=== PATIENT | female | born 1960 | race Caucasian/White ===

== ENCOUNTER 2022-09-27 11:02 | Outpatient (OUT) | payer OTHER, SELFPAY ==
--- NOTE | 2022-09-27 11:12 | XR_ITS ---
The [address] [address] Patient Name: JULIANN SILVA MRN: [id number] date: 1960 Sex: F Assigned Patient Location: [facility] Current Patient Location: [facility] Accession/Order Number: [id number] Exam Date: 09/27/2022 11:42 Report Date: 09/27/2022 16:08 At the request of: NADEGE TAYLOR Procedure: XR cervical spine 5V EXAM TYPE: XR cervical spine 5V EXAM DATE AND TIME: 09/27/2022 8:42 AM PDT INDICATION: 62 years old Female with right-sided pain COMPARISON: None. TECHNIQUE: 5 views of the cervical spine. FINDINGS: BONES/DISCS: Vertebral bodies are normal in height. There is disc space narrowing at C5-C6 and C6-C7 with associated anterior osteophytosis. Facet arthropathy is noted at C6-C7. There is bilateral foraminal stenosis at C5-C6 and C6-C7. Other foramina are satisfactorily maintained.. PARASPINOUS: Negative. No paraspinous abnormality. OTHER: Negative. CONCLUSION: Multilevel cervical spondylosis. No acute fracture or traumatic malalignment. Electronically authenticated by: Baljinder HAIR Date: 09/27/2022 16:08
--- NOTE | 2022-09-27 11:12 | XR_ITS ---
The [address] [address] Patient Name: JULIANN SILVA MRN: [id number] date: 1960 Sex: F Assigned Patient Location: [facility] Current Patient Location: [facility] Accession/Order Number: [id number] Exam Date: 09/27/2022 11:42 Report Date: 09/27/2022 16:02 At the request of: NADEGE TAYLOR Procedure: XR lumbar spine 2-3V EXAM: XR lumbar spine 2-3V HISTORY: Anesthesia of skin R20.0 COMPARISON: None. TECHNIQUE: 3 view study FINDINGS: Vertebral bodies are normal in height. There is widespread disc space narrowing, most marked at L4-L5. Early anterior osteophytosis at L1-L2, L2-L3, L3-L4, and L4-L5. Facet arthropathy is noted at L4-L5 and L5-S1. XR/XR lumbar spine 2-3V IMPRESSION: Multilevel lumbar spondylosis. Electronically authenticated by: Baljinder HAIR Date: 09/27/2022 16:02
== END 2022-09-27 11:03 | disposition home or self-care (01) ==
LOC: RAD 11:06
PROVIDERS: PCP Family Medicine; Visit Provider Family Medicine
DX: R20.0 Anesthesia of skin (principal); M79.2 Neuralgia and neuritis, unspecified; M47.812 Spondylosis without myelopathy or radiculopathy, cervical region
CPT/HCPCS: 72050; 72100

== ENCOUNTER 2022-11-26 08:14 | Outpatient (OUT) | payer OTHER, SELFPAY ==
[2022-11-26 08:35] LABS: Erythrocyte Sedimentation Rate 3 mm/hr (<=30)
[2022-11-26 09:21] LABS: BUN Creatinine Ratio 18.2; Calcium 9.1 mg/dL (8.5-10.1); Carbon Dioxide 31.3 mmol/L (21.0-32.0); Chloride 103 mmol/L (98-107); Creatine Kinase 137 U/L (26-192); Estimated GFR (African America >60 (>=60); Estimated GFR (Non-African Ame >60 (>=60); Glucose 112 mg/dL (74-106); Potassium 4.3 mmol/L (3.5-5.1); Sodium 140 mmol/L (136-145); Thyroid Stimulating Hormone 3.397 uIU/mL (0.358-3.740)
== END 2022-11-26 08:15 | disposition home or self-care (01) ==
LOC: LAB 08:15
PROVIDERS: PCP Family Medicine; Visit Provider Psychiatry & Neurology Neurology
DX: R20.0 Anesthesia of skin (principal); D64.9 Anemia, unspecified; R20.2 Paresthesia of skin
CPT/HCPCS: 36415; 80048; 82550; 82607; 82728; 82746; 84443; 85652

== ENCOUNTER 2023-11-19 08:28 | Outpatient (OUT) | payer OTHER, SELFPAY ==
[2023-11-19 09:00] LABS: Basophils Percent Auto 0.8 % (0.2-2.0); Eosinophils Absolute Auto 0.2 10^3/uL (0.0-0.7); Eosinophils Percent Auto 3.1 % (0.9-7.0); Hematocrit 39.6 % (36.0-48.0); Hemoglobin 13.2 g/dL (12.0-16.0); Immature Granulocytes Abs Auto 0.01 10^3/uL (0.00-0.03); Immature Granulocytes Pct Auto 0.2 % (0.0-0.5); Lymphocytes Absolute Auto 1.9 10^3/uL (1.2-3.8); Lymphocytes Percent Auto 35.9 % (20.5-60.0); Mean Corpuscular HGB Conc 33.3 g/dL (29.9-35.2); Mean Corpuscular Hemoglobin 30.1 pg (26.7-34.0); Mean Corpuscular Volume 90.4 fL (81.0-99.0); Mean Platelet Volume 9.6 fL (9.5-13.5); Monocytes Absolute Auto 0.4 10^3/uL (0.3-0.8); Monocytes Percent Auto 7.5 % (1.7-12.0); Neutrophils Absolute Auto 2.8 10^3/uL (1.4-6.5); Neutrophils Percent Auto 52.5 % (43.0-75.0); Platelet Count 275 10^3/uL (150-450); Red Blood Count 4.38 10^6/uL (4.20-5.40); Red Cell Distribution Width 12.6 % (11.0-15.0); White Blood Count 5.2 10^3/uL (4.0-11.0)
[2023-11-19 09:31] LABS: Alanine Aminotransferase 38 U/L (14-59); Albumin Level 3.5 g/dL (3.4-5.0); Alkaline Phosphatase 80 U/L (46-116); Aspartate Amino Transferase 20 U/L (15-37); BUN Creatinine Ratio 16.7; Calcium 8.8 mg/dL (8.5-10.1); Carbon Dioxide 26.1 mmol/L (21.0-32.0); Chloride 104 mmol/L (98-107); Chol HDL Ratio 3.1; Cholesterol 245 mg/dL (<=200); Estimated GFR (African America >60 (>=60); Estimated GFR (Non-African Ame >60 (>=60); Globulin 3.4 g/dL; Glucose 115 mg/dL (74-106); HDL Cholesterol 79 mg/dL (40-60); Potassium 4.1 mmol/L (3.5-5.1); Sodium 140 mmol/L (136-145); Total Protein 6.9 g/dL (6.4-8.2); Triglycerides 104 mg/dL (<=150); VLDL CHOLESTEROL 20.8 mg/dL
== END 2023-11-19 08:29 | disposition home or self-care (01) ==
LOC: LAB 08:30
PROVIDERS: PCP Family Medicine; Visit Provider Family Medicine
DX: I10 Essential (primary) hypertension (principal)
CPT/HCPCS: 36415; 80053; 80061; 85025

== ENCOUNTER 2023-11-19 14:52 | Outpatient (OUT) | payer OTHER, SELFPAY ==
--- NOTE | 2023-11-19 15:25 | XR_ITS ---
The [address] [address] Patient Name: JULIANN SILVA MRN: [id number] date: 1960 Sex: F Assigned Patient Location: [facility] Current Patient Location: Accession/Order Number: [id number] Exam Date: 11/19/2023 15:01 Report Date: 11/20/2023 07:12 At the request of: NADEGE TAYLOR Procedure: XR DEXA axial skeleton EXAMINATION: XR DEXA axial skeleton, 11/19/2023 3:01 PM EDT HISTORY: Menopause COMPARISON: None. TECHNIQUE: Dual-energy X-ray absorptiometry (DEXA) bone density study performed for the axial skeleton. HISTORY: Menopause FINDINGS: Bone mineral density AP spine L1-L4 measures 1.328 g/sq cm. T score 1.3. Normal Lowest bone density left femoral neck measuring 0.909 g/sq cm. T score -0.9. Normal XR/XR DEXA axial skeleton IMPRESSION: Normal bone mineral density. Low fracture risk Pharmacologic treatment recommendations * No uniform recommendation applies to all patients. Management plans must be individualized. * Consider initiating pharmacologic treatment in postmenopausal women and men >= 50 years of age who have the following: Primary fracture prevention: * T-score <= - 2.5 at the femoral neck, total hip, lumbar spine, 33% radius (some uncertainty with existing data) by DXA. * Low bone mass (osteopenia: T-score between - 1.0 and - 2.5) at the femoral neck or total hip by DXA with a 10-year hip fracture risk >= 3% or a 10-year major osteoporosis-related fracture risk >= 20% (i.e., clinical vertebral, hip, forearm, or proximal humerus) based on the [place]-adapted FRAXregistered model. Secondary fracture prevention: * Fracture of the hip or vertebra regardless of BMD [4, 5]. * Fracture of proximal humerus, pelvis, or distal forearm in persons with low bone mass (osteopenia: T-score between - 1.0 and - 2.5). The decision to treat should be individualized in persons with a fracture of the proximal humerus, pelvis, or distal forearm who do not have osteopenia or low BMD [12, 13]. Luciano DONNELLY, Alycia HALL, Gabrielle KL, Katia EM, Sae KG, AJ, Ramesh ES. The clinician's guide to prevention and treatment of osteoporosis. Osteoporos Int. 2021;33(10):6920-1361. doi: 10.1007/f88388-567-61128-n. Epub 2021Jun 15. Erratum in: Osteoporos Int. 2021Sep 14;: PMID: [id number]; PMCID: [id number]. Electronically authenticated by: DEANGELO TORRES Date: 11/20/2023 07:12
--- NOTE | 2023-11-19 15:25 | MM_ITS ---
Patient Name: JULIANN SILVA MR#: [id number] : 1960 Exam Date: 11/19/2023 Ordering Doctor: DR Rosalba Koehler M.D. RADIOLOGY REPORT PROCEDURE: MM TOMOSYNTHESIS SCREENING BI COMPARISON: MG MAMM CHANEL SCRN W CAD DIG, 12/17/2014. MG MAMM SCREEN CHANEL W CAD, 08/27/2019. INDICATIONS: Screening Calculator Name NCI Breast Cancer Risk Assessment Tool 5 Year Breast Cancer Risk 1.80% Lifetime Breast Cancer Risk 6.90% Personal Breast Cancer No Personal Ovarian Cancer No Treatments None Family Cancers Mother with ovaria cancer at age 32. LOCATION: [facility] BREAST COMPOSITION: The breasts are heterogeneously dense,which may obscure small masses. FINDINGS: DIAGNOSTIC CATEGORY 2--BENIGN FINDING. NO CHANGE FROM COMPARISON. Scattered benign-appearing calcifications are present. Scattered benign-appearing lymph nodes are present. RIGHT BREAST: No significant suspicious finding. LEFT BREAST: No significant suspicious finding. RECOMMENDATIONS: ROUTINE MAMMOGRAM AND CLINICAL EVALUATION IN 12 MONTHS. PLEASE NOTE: A NORMAL MAMMOGRAM DOES NOT EXCLUDE THE POSSIBILITY OF BREAST CANCER. A CLINICALLY SUSPICIOUS PALPABLE LUMP SHOULD BE BIOPSIED. Dictated by: Jaziel Astudillo MD on 11/19/2023 at 15:42 Approved by: Jaziel Astudillo MD on 11/19/2023 at 15:47
== END 2023-11-19 14:53 | disposition home or self-care (01) ==
LOC: MAMMO 14:52
PROVIDERS: PCP Family Medicine; Visit Provider Family Medicine
DX: Z12.31 Encounter for screening mammogram for malignant neoplasm of breast (principal); I10 Essential (primary) hypertension; Z78.0 Asymptomatic menopausal state; Z80.41 Family history of malignant neoplasm of ovary
CPT/HCPCS: 36415; 77063; 77067; 77080; 80053; 80061; 85025

== ENCOUNTER 2024-05-28 09:39 | Outpatient (OUT) | payer MEDICARE, SELFPAY ==
--- NOTE | 2024-05-28 09:52 | XR_ITS ---
[place] [id number] Patient Name: JULIANN SILVA MRN: [id number] date: 1960 Sex: F Assigned Patient Location: [facility] Current Patient Location: [facility] Accession/Order Number: [id number] Exam Date: 05/28/2024 10:10 Report Date: 05/28/2024 10:11 At the request of: NADEGE TAYLOR MD Procedure: XR chest 2V Plain film chest 2 view HISTORY: Chronic cough COMPARISON: None FINDINGS: SUPPORT DEVICES: None POSTSURGICAL CHANGES: None HEART: Within normal limits PULMONARY [place]: Within normal limits MEDIASTINUM: Unremarkable LUNGS AND PLEURA: No acute lung process, pleural effusion or pneumothorax identified. BONY STRUCTURES: Degenerative change ADDITIONAL FINDINGS None XR/XR chest 2V IMPRESSION: No acute process. Impression dictated by: Quinton Hughes M.D.05/28/2024 10:11 AM Dictation Location: [place] [address] Electronically authenticated by: [id number] Y Date: 05/28/2024 10:11
--- OUTSIDE RECORDS SUMMARY | 2024-05-28 09:56 | XMS_ITS | CCD ---
Author Organization [facility] Care Team Providers Care Senior Web Developer Name Role Phone ROSALBA TAYLOR Admitting Unavailable ROSALBA TAYLOR Attending Unavailable ROSALBA TAYLOR Primary Care Unavailable DEANGELO TORRES V Consulting Unavailable ROSALBA TAYLOR Consulting Unavailable NILL, MARK Admitting Unavailable NILL, MARK Attending Unavailable ROSALBA TAYLOR Primary Care Unavailable NILL, MARK Consulting Unavailable FILOMENA RAMIRES Consulting Unavailable NILL, MARK Admitting Unavailable NILL, MARK Attending Unavailable ROSALBA TAYLOR Primary Care Unavailable NILL, MARK Consulting Unavailable Rosalba Taylor Unavailable Shaun Novak II [phone] Shaun Novak II Attending UnavailShaun Pacheco II Admitting UnavailRosalba Kim Primary Care Unavailable Rosalba Taylor Admitting Unavailable Rosalba Taylor Attending Unavailable Rosalba Taylor Primary Care Unavailable MD Rosalba Taylor Primary Care Provider MD Shaun Novak II Attending Provider [phone] MD Rosalba Taylor Attending Provider [phone] Allergies Allergy Classification Reported Allergen(s) Allergy Type Date of Onset Reaction(s) Facility (4 sources) patient allergy list reviewed by nurse or physicia Propensity to adverse reactions 8 Comment:Done [employer] Other (4 sources) Allergies Reconciled Propensity to adverse reactions Unknown [employer] Other Medications Current Medications Medication Drug Class(es) Dates Sig (Normalized) Sig (Original) acetaminophen 500 mg oral tablet (5 sources) take 1 tablet by mouth every six hours Acetaminophen 500 MG 1 tablet as needed Orally every 6 hrs prn Active amLODIPine 10 mg / hydroCHLOROthiazide 25 mg / valsartan 160 mg oral tablet (4 sources) Thiazide Diuretic, Dihydropyridine Calcium Channel Lukasz, Angiotensin 2 Receptor Lukasz take 1 tablet by mouth every twenty-four hours amLODIPine-Valsar gaming-HCTZ 10-160-25 MG 1 tablet Orally Once a day Active meloxicam 15 mg oral tablet (10 sources) Nonsteroidal Anti-inflammatory Drug Start: End: take 1 tablet by mouth once daily Meloxicam 15 mg tablet Active 15 MG PO Daily May 11, 2024 8:30am Start: 07-27-2022 take 1 tablet by gala th every twenty-four hours Meloxicam 15 MG 1 tablet Orally Once a day for 90 days Jul, Active Completed/Discontinued Medications Medication Drug Class(es) Dates Sig (Normalized) Sig (Original) amLODIPine 10 mg / valsartan 160 mg oral tablet (11 sources) Dihydropyridine Calcium Channel Lukasz, Angiotensin 2 Receptor Lukasz Start: 08-29-2023 End: 05-28-2024 take 1 tablet by mouth once daily Amlodipine-Valsart an 10-160 mg tablet Discontinued 1 TAB PO Daily March 04, 2024 9:15am May 28, 2024 9:21am amLODIPine Besyl ate-Valsartan 10-160 mg TAKE 1 TABLET DAILY Active diclofenac sodium 0.01 mg/mg topical gel (7 sources) Nonsteroidal Anti-inflammatory Drug Start: 11-05-2023 End: 11-05-2023 apply 1-2 g topically four times daily Diclofenac Sodium 1 % gel Discontinued 2 GM TOPICAL Every 4 hours November 05, 2023 12:00am November 05, 2023 2:43pm FreeTextSig: apply 1-2 grams to affected area Externally Four times a day; Note: Source Status: Taking; Refills: 2; Qty: 100 Gram; Provider: Kishore Zimmerman Start: 11-05-2023 End: 11-05-2023 apply 1-2 g topically four times daily Diclofenac Sodium Discontinued 2 GM TOPICAL Every 4 hours November 05, 2023 12:00am November 05, 2023 2:43pm FreeTextSig: apply 1-2 grams to affected area Externally Four times a day; Note: Source Status: Taking; Refills: 2; Qty: 100 Gram; Provider: Kishore Zimmerman Start: 07-27-2022 Diclofenac Sod ium 1 % apply 1-2 grams to affected area Externally Four times a day for 30 days Jul, Active ibuprofen 600 mg oral tablet (7 sources) Nonsteroidal Anti-inflammatory Drug Start: 11-05-2023 End: 11-05-2023 take 1 tablet by mouth three times daily at mealtime as needed Ibuprofen 600 mg tablet Discontinued 600 MG PO Three times daily November 05, 2023 12:00am November 05, 2023 3:09pm FreeTextSi tablet with food or milk as needed Orally Three times a day; Note: Source Status: Takingprn; Provider: Rodo Navarrete ( ) take 1 tablet by gala th three times daily at mealtime as needed Ibuprofen 600 MG 1 tablet with food or milk as needed Orally Three times a day prn Active Problems Active Problems Problem Classification Problem Date Documented Date Episodic/Chronic Anal and rectal conditions (4 sources) Anorectal disorder; Translations: [Other specified diseases of anus and rectum] Episodic Esophageal disorders (10 sources) Gastroesophageal reflux disease; Translations: [Gastro-esophageal reflux disease without esophagitis] Chronic Essential hypertension (11 sources) Essential (primary) hypertension; Translations: [Essential hypertension] Onset: 01-12-2014 11-05-2023 Chronic Heart valve disorders (1 source) Rheumatic tricuspid insufficiency; Translations: [RHEUMATIC TRICUSPID INSUFFICIENCY] Onset: 09-12-2019 Chronic Immunizations and screening for infectious disease (4 sources) Contact with and (suspected) exposure to other viral communicable diseases; Translations: [CONTCT EXPS OTH VIRL COMMUNICABL DZ] Onset: 11-13-2019 Episodic Osteoarthritis (15 sources) Osteoarthritis of right knee joint; Translations: [Unilateral primary osteoarthritis, right knee] Chronic Other connective tissue disease (1 source) Pain in right leg Episodic Other connective tissue disease (1 source) Pain in left leg Episodic Other lower respiratory disease (1 source) Dyspnea, unspecified; Translations: [DYSPNEA UNSPECIFIED] Onset: 09-12-2019 Episodic Other lower respiratory disease (4 sources) Dyspnea; Translations: [Other forms of dyspnea] Episodic Other lower respiratory disease (2 sources) Chronic cough; Translations: [Chronic cough] 05-28-2024 Episodic Other non-traumatic joint disorders (3 sources) Pain in left knee Episodic Other nutritional; endocrine; and metabolic disorders (4 sources) Obese class I; Translations: [Body mass index (BMI) 32.0-32.9, adult] Chronic Other screening for suspected conditions (not mental disorders or infectious disease) (8 sources) Encounter for screening for malignant neoplasm of colon; Translations: [Encounter for screening mammogram for malignant neoplasm of breast] Onset: 09-12-2019 11-05-2023 Episodic Other skin disorders (4 sources) Disorder of skin and/or subcutaneous tissue; Translations: [Disorder of the skin and subcutaneous tissue, unspecified] Episodic Prolapse of female genital organs (1 source) Incomplete uterovaginal prolapse; Translations: [Uterovaginal prolapse, incomplete] Onset: 05-18-2014 Chronic Residual codes; unclassified (1 source) Acquired absence of ovaries, bilateral; Translations: [ACQUIRED ABSENCE OVARIES BILATERAL] Onset: 11-24-2019 Episodic Residual codes; unclassified (1 source) Acquired absence of both cervix and uterus; Translations: [ACQUIRED ABSENCE BOTH CERVIX AND UTERUS] Onset: 11-24-2019 Episodic Residual codes; unclassified (1 source) Family history of malignant neoplasm of ovary; Translations: [FAM HX MALIGNANT NEOPLASM OVARY] Onset: 09-12-2019 Episodic Residual codes; unclassified (3 sources) H/O: risk factor; Translations: [Transfusion history] Episodic Residual codes; unclassified (2 sources) Menopause present; Translations: [Asymptomatic menopausal state] 11-05-2023 Episodic Residual codes; unclassified (1 source) Asymptomatic menopausal state; Translations: [Symptomatic menopausal or female climacteric states] 11-05-2023 Episodic Screening and history of mental health and substance abuse codes (1 source) Personal history of nicotine dependence; Translations: [PERSONAL HISTORY OF NICOTINE DEPEND] Onset: 11-24-2019 Episodic Unclassified (1 source) Pain in left knee; Translations: [Pain in left knee] Onset: 07-27-2022 Past or Other Problems Problem Classification Problem Date Documented Da te Episodic/Chronic Genitourinary symptoms and ill-defined conditions (1 source) Female genital organ symptoms; Translations: [Unspecified symptom associated with female genital organs] Onset: 05-18-2014 Episodic Other aftercare (1 source) Surgical follow-up; Translations: [Surgery follow-up examination] Onset: 07-15-2014 Episodic Other female genital disorders (1 source) Mucous polyp of cervix; Translations: [Mucous polyp of cervix] Onset: 02-21-2014 Episodic Other female genital disorders (1 source) Hypertrophy of uterus; Translations: [Hypertrophy of uterus] Onset: 02-21-2014 Episodic Results Test Name Value Interpretation Reference Range Facility XR knee BI 4Von 07-27-2022 XR knee BI 4V [facility] [employer] [address] [place] [address] XRay Report Signed Patient: Juliann Silva MR#: [id number] : 1960 Acct:[id number] Age/Sex: 61 / F ADM Date: 07/27/22 [place] [facility] [place]: Type: [facility] Attending Dr: Shaun Novak II, MD Copies to: Shaun Novak MD Ordering Provider: Shaun Novak MD Date of Service: 07/27/22 XR/XR knee BI 4V: Acute pain of left knee ([id number]) XR/XR pelvis 1-2V: Acute pain of left knee Single view of the pelvis plain film HISTORY: Bilateral knee pain greater on the left COMPARISON: None SI JOINTS Intact HIPS adequate joint spaces. No significant hip degeneration. Spurring of the greater trochanters greater on the left. FRACTURE: No fracture BONY ALIGNMENT: Adequate SOFT TISSUES: Unremarkable LOWER LUMBAR SPINE: Unremarkable INTRAPELVIC STRUCTURES: Unremarkable POSTSURGICAL CHANGES:None XR/XR pelvis 1-2V IMPRESSION:Unremarkab le hip joints. Spurring of the greater trochanters. 4 views both knee plain film COMPARISON: None HISTORY: Bilateral knee pain greater on the left ACUTE FINDINGS: None DEGENERATIVE CHANGE: Moderate patellofemoral and medial compartment joint space tiny marginal spurring. SOFT TISSUE FINDINGS: Unremarkable JOINT EFFUSION: Small bilateral joint effusions. POSTOP CHANGES: None BONE MINERALIZATION: Adequate IMPRESSION: Moderate bilateral knee degeneration. Small joint effusions. Impression dictated by: Quinton Hughes M.D.07/27/2022 2:10 PM Dictation Location: [place] [address] Transcribed By: [facility] 07/27/22 1410 Dictated By: Quinton Hughes DO 07/27/22 1404 Signed By: 07/27/22 1410 Normal [facility] XR knee BI 4V [facility] [employer] Other XR knee BI 4V [facility] [employer] Other XR knee BI 4V [address] [place] [address] [employer] Other [place] [address] [facility] [employer] Other XR knee BI 4V XRay Report [facility] [employer] Other XR knee BI 4V Signed [employer] Other XR knee BI 4V Patient: Juliann Silva MR#: [id number] [facility] [employer] Other XR knee BI 4V : 1960 Acct:[id number] [facility] [employer] Other XR knee BI 4V Age/Sex: 61 / F ADM Date: 07/27/22 [employer] Other XR knee BI 4V Loc: [facility] Room: Type : REG I [facility] [employer] Other XR knee BI 4V Attending Dr: Shaun Novak II, MD [employer] Other XR knee BI 4V Copies to: Shaun Novak MD [employer] Other XR knee BI 4V Ordering Provider: Shaun Novak MD [employer] Other XR knee BI 4V Date of Service: 07/27/22 [employer] Other XR knee BI 4V XR/XR knee BI 4V: Acute pain of left knee [employer] Other XR knee BI 4V ([id number]) XR/XR pelvis 1-2V: Acute pain of left knee [employer] Other XR knee BI 4V Single view of the pelvis plain film [employer] Other XR knee BI 4V HISTORY: Bilateral knee pain greater on the left [employer] Other XR knee BI 4V COMPARISON: None [employer] Other XR knee BI 4V SI JOINTS Intact [employer] Other XR knee BI 4V HIPS adequate joint spaces. No significant hip degeneration. Spurring of the greater trochanters [employer] Other XR knee BI 4V greater on the left. [employer] Other XR knee BI 4V FRACTURE: No fracture [employer] Other XR knee BI 4V BONY ALIGNMENT: Adequate [employer] Other XR knee BI 4V SOFT TISSUES: Unremarkable [employer] Other XR knee BI 4V LOWER LUMBAR SPINE: Unremarkable [employer] Other XR knee BI 4V INTRAPELVIC STRUCTURES: Unremarkable [employer] Other XR knee BI 4V POSTSURGICAL CHANGES:None [employer] Other XR knee BI 4V XR/XR pelvis 1-2V [employer] Other XR knee BI 4V IMPRESSION:Unremarka b le hip joints. Spurring of the greater trochanters. [employer] Other XR knee BI 4V 4 views both knee plain film [employer] Other XR knee BI 4V ACUTE FINDINGS: None [employer] Other XR knee BI 4V DEGENERATIVE CHANGE: Moderate patellofemoral and medial compartment joint space tiny marginal [employer] Other XR knee BI 4V spurring. [employer] Other XR knee BI 4V SOFT TISSUE FINDINGS : Unremarkable [employer] Other XR knee BI 4V JOINT EFFUSION: Smal l bilateral joint effusions. [employer] Other XR knee BI 4V POSTOP CHANGES: None [employer] Other XR knee BI 4V BONE MINERALIZATION: Adequate [employer] Other XR knee BI 4V IMPRESSION: Moderate bilateral knee degeneration. Small joint effusions. [employer] Other XR knee BI 4V Impression dictated by: Quinton Hughes M.D.07/27/2022 2:10 PM [employer] Other XR knee BI 4V Dictation Location: [facility] [employer] Other XR knee BI 4V Transcribed By: PWS 07/27/22 1410 [employer] Other XR knee BI 4V Dictated By: Quinton Hughes DO 07/27/22 1404 [employer] Other XR knee BI 4V Signed By: [employer] Other XR knee BI 4V 07/27/22 1410 [employer] Other Outside Colonoscopyon 2019 Outside Colonoscopy [id number]:127 Normal [facility] Lab Reportson 11-16-2019 Lab Reports [id number]:127 Normal [facility] COVID-19 PCRon 11-14-2019 SARS-CoV-2, LILIANA Not Detected Normal Not Detected [facility] Comment on above: Result Comment: This nucleic acid amplification test was developed and its performance characteristics determined by [employer]. Nucleic acid amplification tests include PCR and TMA. This test has not been FDA cleared or approved. This test has been authorized by FDA under an Emergency Use Authorization (EUA). This test is only authorized for the duration of time the declaration that circumstances exist justifying the authorization of the emergency use of in vitro diagnostic tests for detection of SARS-CoV-2 virus and/or diagnosis of COVID-19 infection under section 564(b)(1) of the Act, 21 U.S.C. 360bbb-3(b) (1), unless the authorization is terminated or revoked sooner. When diagnostic testing is negative, the possibility of a false negative result should be considered in the context of a patient's recent exposures and the presence of clinical signs and symptoms consistent with COVID-19. An individual without symptoms of COVID-19 and who is not shedding SARS-CoV-2 virus would expect to have a negative (not detected) result in this assay. Performed By: #### C VDPCR, CVDSTAT #### [facility] [address] [place] [address] Milla Annalisa PRIORITY COVID PROCESSINGon 11-14-2019 Comment Comment Normal [facility] Comment on above: Result Comment: Rece ived Performed By: #### C VDPCR, CVDSTAT #### [facility] [address] [place] [address] Milla Fang Provider Letter FTon 11-11 Provider Letter [facility] ROSALBA TAYLOR [address] [place] [address] Re: JULIANN SILVA Date of : 1960 Thank you for your referral of Juliann Silva who was seen on consultation on 11/03/2019 for colorectal screening. I have enclosed my consultation notes for your review. Her procedure is scheduled for 11/18/2019. Sincerely, Mark Funes MD General Surgery [facility] Consent for Procedure/Surger yon 11-06-2019 Consent for Procedure/Surgery [id number]:127 Normal [facility] Ambulatory Clinical Summaryo n 11-03-2019 Ambulatory Clinical Summary {[id number]}CD:[id number] Normal [facility] General Surgery Office/Clini c Noteon 11-03-2019 General Surgery Office/Clinic Note Chief Complaint referral for colonoscopy HPI Staff 59 year old female presents on consultation from Dr. Taylor for screening colonoscopy. Does experience intermittent rectal bleeding with wiping. PCP noted probable skin tag posterior rectum. Denies abdominal or rectal pain. No nausea or vomiting. No change in stools. No unexplained weight loss. No previous history of colonoscopy. No known family history of colon cancer. History of Present Illness 59 yo female with h/o htn, referred for colorectal screening, denies changes in bms or blood in stools, no abdominal complaints; occasional BRBPR with wiping, no asa or NSAID use, no SBE prophylaxis, abdominal operations significant for NOVA with BSO; no previous colonoscopy. no fmhx of GI malignancy or IBD. Review of Systems PHQ Score Initial Depression Screen Score: 0 ROS - Provider Constitutional: no fever, no sweats, no weight loss. Eyes: no glasses, no blurred vision, no visual loss. ENMT: no dentures, no hoarseness, no swallowing difficulties, no hearing loss, no ear infection(s), no nose bleeds. Cardiovascular: high blood pressure, no chest pain, regular heartbeat, no heart murmur. Respiratory: no shortness of breath, no cough, no asthma, no wheezing. Gastrointestinal: no nausea, no vomiting, no diarrhea, no constipation, no blood in stool, no change in bowel habits, no abdominal pain, no hepatitis. Genitourinary: no kidney stones, no urine infection, no dysuria. Musculoskeletal: no pain, no weakness. Skin: no changing moles, no rash, no skin lumps. Neurologic: no seizures, no epilepsy, no headache. Psychiatric: no emotional or psychiatric problem. Heme/Lymph: no bleeding problems, no anemia, no blood clots, no transfusions. Allergy/Immunologic: no swollen lymph nodes/glands, no IV drug abuse. Other: Additional ROS info: Except as noted in the above Review of Systems and in the History of Present Illness, all other systems have been reviewed and are negative or noncontributory. Physical Exam Vitals & Measurements T: 36.8 ?C (Tympanic) HR: 76(Peripheral) RR: 16 BP: 122/64 HT: 165.1 cm HT: 165.1 cm WT: 87.4 kg WT: 87.4 kg BMI: 32.06 HEENT: normal conjunctiva, sclera clear, no scleral icterus, EOM intact, PERRLA. oral mucosa moist without lesions Neck: trachea midline , no mass, symmetric, no thyromegaly or nodules. no adenopathy Respiratory: lungs CTA, respirations non labored. Cardiovascular: regular rate and rhythm, no murmur, , no pedal edema or varicosities. Gastrointestinal: soft, non distended, no tenderness, no masses, no palpable hernias, diastasis recti no, no hepatosplenomegaly. normal bs Lymphatic: no cervical adenopathy, no axillary adenopathy, Musculoskeletal: normalgait, digits and nails without infection, nodes, cyanosis, clubbing. Skin: no rashes, no lesions, no ulcers, no subcutaneous nodules, induration. Psychiatric/Neuro: oriented to time, place, person, judgement normal, affect appropriate for age, insight intact, no focal deficits. Tests: review of old records completed, Discussed surgical options, risks, and possible complications with patient. Assessment/Plan 1. Screening for malignant neoplasm of colon (Z12.11: Encounter for screening for malignant neoplasm of colon) plan colonoscopy under anesthesia, informed consent obtained. patient understands the risks associated with COVID-19, and the need for preoperative testing with self-isolation until the procedure. Follow-up No qualifying data available Patient Education Colonoscopy Colonoscopy, Care After Problem List/Past Medical History Ongoing HTN (hypertension) Screening for malignant neoplasm of colon Historical No qualifying data Procedure/Surgical History NOVA BSO - Total abdominal hysterectomy and bilateral salpingo-oophorectomy (06/18/2014), Dilatation and curettage (02/18/2001). Medications amlodipine-benazepril 10 mg-20 mg oral capsule, 1 cap(s), Oral, Daily Allergies No Known Allergies No Known Medication Allergies Social History Alcohol Current, Beer, Wine, Liquor, 1-2 times per week, 11/03/2019 Substance Abuse - Denies Substance Abuse, 11/03/2019 Tobacco Former smoker, quit more than 30 days ago Tobacco Use:., 11/03/2019 Family History Metastatic cancer: Father. Primary malignant neoplasm of female genital organ: Mother. Normal [facility] Comment on above: Result Comment: Elec tronically Signed By: SEEMA STEEL, Mark Davila\Date and Time Signed: 11/03/19 16:01 EDT Patient Educationon 11-03-19 20 Patient Education Family Medicine Colonoscopy A colonoscopy is an exam to evaluate your entire colon. In this exam, your colon is cleansed. A long fiberoptic tube is inserted through your rectum and into your colon. The fiberoptic scope (endoscope ) is a long bundle of enclosed and very flexible fibers. These fibers transmit light to the area examined and send images from that area to your caregiver. Discomfort is usually minimal. You may be given a drug to help you sleep (sedative ) during or prior to the procedure. This exam helps to detect lumps (tumors ), polyps, inflammation, and areas of bleeding. Your caregiver may also take a small piece of tissue (biopsy ) that will be examined under a microscope. LET YOUR CAREGIVER KNOW ABOUT: ? Allergies to food or medicine. ? Medicines taken, including vitamins, herbs, eyedrops, oncc-pkv-nzcnqnu medicines, and creams. ? Use of steroids (by mouth or creams). ? Previous problems with anesthetics or numbing medicines. ? History of bleeding problems or blood clots. ? Previous surgery. ? Other health problems, including diabetes and kidney problems. ? Possibility of , if this applies. BEFORE THE PROCEDURE ? A clear liquid diet may be required for 2 days before the exam. ? Ask your caregiver about changing or stopping your regular medications. ? Liquid injections (enemas ) or laxatives may be required. ? A large amount of electrolyte solution may be given to you to drink over a short period of time. This solution is used to clean out your colon. ? You should be present 60 minutes prior to your procedure or as directed by your caregiver. AFTER THE PROCEDURE ? If you received a sedative or pain relieving medication, you will need to arrange for someone to drive you home. ? Occasionally, there is a little blood passed with the first bowel movement. Do not be concerned. FINDING OUT THE RESULTS OF YOUR TEST Not all test results are available during your visit. If your test results are not back during the visit, make an appointment with your caregiver to find out the results. Do not assume everything is normal if you have not heard from your caregiver or the medical facility. It is important for you to follow up on all of your test results. HOME CARE INSTRUCTIONS ? It is not unusual to pass moderate amounts of gas and experience mild abdominal cramping following the procedure. This is due to air being used to inflate your colon during the exam. Walking or a warm pack on your belly (abdomen ) may help. ? You may resume all normal meals and activities after sedatives and medicines have worn off. ? Only take hmaa-his-oixduta or prescription medicines for pain, discomfort, or fever as directed by your caregiver. Do not use aspirin or blood thinners if a biopsy was taken. Consult your caregiver for medicine usage if biopsies were taken. SEEK IMMEDIATE MEDICAL CARE IF: ? You have a fever. ? You pass large blood clots or fill a toilet with blood following the procedure. This may also occur 10 to 14 days following the procedure. This is more likely if a biopsy was taken. ? You develop abdominal pain that keeps getting worse and cannot be relieved with medicine. Document Released: 02/01/2001 Document Revised: 04/28/2012 Document Reviewed: 09/16/2008 ExitCare? Patient Information ?2013 [email or web address]. Colonoscopy Care After Read the instructions outlined below and refer to this sheet in the next few weeks. These discharge instructions provide you with general information on caring for yourself after you leave the hospital. Your doctor may also give you specific instructions. While your treatment has been planned according to the most current medical practices available, unavoidable complications occasionally occur. If you have any problems or questions after discharge, call your doctor. HOME CARE INSTRUCTIONS ACTIVITY: ? You may resume your regular activity, but move at a slower pace for the next 24 hours. ? Take frequent rest periods for the next 24 hours. ? Walking will help get rid of the air and reduce the bloated feeling in your belly (abdomen ). ? No driving for 24 hours (because of the medicine (anesthesia ) used during the test). ? You may shower. ? Do not sign any important legal documents or operate any machinery for 24 hours (because of the anesthesia used during the test). NUTRITION: ? Drink plenty of fluids. ? You may resume your normal diet as instructed by your doctor. ? Begin with a light meal and progress to your normal diet. Heavy or fried foods are harder to digest and may make you feel sick to your stomach (nauseated ). ? Avoid alcoholic beverages for 24 hours or as instructed. MEDICATIONS: ? You may resume your normal medications unless your doctor tells you otherwise. WHAT TO EXPECT TODAY: ? Some feelings of bloating in the abdomen. ? Passage of more gas than usual. ? Spotting of blood in your stool or on the toilet paper. IF YOU HAD POLYPS REMOVED DURING THE COLONOSCOPY: ? No aspirin products for 7 days or as instructed. ? No alcohol for 7 days or as instructed. ? Eat a soft diet for the next 24 hours. FINDING OUT THE RESULTS OF YOUR TEST Not all test results are available during your visit. If your test results are not back during the visit, make an appointment with your caregiver to find out the results. Do not assume everything is normal if you have not heard from your caregiver or the medical facility. It is important for you to follow up on all of your test results. SEEK IMMEDIATE MEDICAL CARE IF: ? You have more than a spotting of blood in your stool. ? Your belly is swollen (abdominal distention ). ? You are nauseated or vomiting. ? You have a fever. ? You have abdominal pain or discomfort that is severe or gets worse throughout the day. Document Released: 09/18/2004 Document Revised: 04/28/2012 Document Reviewed: 09/16/2008 ExitCare? Patient Information ?2013 [email or web address]. Normal [facility] Consultation Noteon 10-28-19 20 Consultation Note [id number] Normal [facility] CBC AUTO DIFFon 08-27-2019 Basophils (Bld) [#/Vol] 0.1 103/ul Normal 0.0-0.1 [facility] Comment on above: Performed By: #### C BC #### [facility] [address] [place] [address] Milla Annalisa Basophils/100 WBC (Bld) 1.1 % Normal 0.2-2.0 [facility] Comment on above: Performed By: #### C BC #### [facility] [address] [place], [place] [id number] Milla Annalisa Eosinophils (Bld) [#/Vol] 0.1 103/ul Normal 0.0-0.7 [facility] Comment on above: Performed By: #### C BC #### [facility] [address] [id number] Milla Annalisa Eosinophils/100 WBC (Bld) 2.0 % Normal 0.9-7.0 [facility] Comment on above: Performed By: #### C BC #### [facility] [address] [place], [place] [id number] Milla Annalisa Erythrocyte distribution width (RBC) [Ratio] 12.9 % Normal 11.0-15.0 [facility] Comment on above: Performed By: #### C BC #### [facility] [address] [place] [address] Milla Annalisa Hematocrit (Bld) [Volume fraction] 42.9 % Normal 36.0-48.0 [facility] Comment on above: Performed By: #### C BC #### [facility] [address] [place] [address] Milla Annalisa Hemoglobin (Bld) [Mass/Vol] 14.1 g/dL Normal 12.0-16.0 [facility] Comment on above: Performed By: #### C BC #### [facility] [address] [place] [address] Milla Annalisa IG # 0.01 10e3/ul Normal 0.00-0.03 [facility] Comment on above: Performed By: #### C BC #### [facility] [address] [place] [address] Milla Annalisa IG % 0.2 % Normal 0.0-0.5 [facility] Comment on above: Performed By: #### C BC #### [facility] [address] [place] [address] Milla Annalisa Lymphocytes (Bld) [#/Vol] 1.8 103/ul Normal 1.2-3.8 [facility] Comment on above: Performed By: #### C BC #### [facility] [address] [place] [address] Milla Nanalisa Lymphocytes/100 WBC (Bld) 33.2 % Normal 20.5-60.0 [facility] Comment on above: Performed By: #### C BC #### [facility] [address] [place], [place] [id number] Milla Calderonen MANUAL DIFF REQ NO Normal [facility] Comment on above: Performed By: #### C BC #### [facility] [address] [place], [place] [id number] Milla Annalisa MCH (RBC) [Entitic mass] 29.6 pg Normal 26.7-34.0 [facility] Comment on above: Performed By: #### C BC #### [facility] [address] [place], [place] [id number] Millasascha Fang MCHC (RBC) [Mass/Vol] 32.9 g/dL Normal 29.9-35.2 [facility] Comment on above: Performed By: #### C BC #### [facility] [address] [place], [place] [id number] Milla Annalisa MCV (RBC) [Entitic vol] 90.1 fL Normal 81.0-99.0 [facility] Comment on above: Performed By: #### C BC #### [facility] [address] [place], [place] [id number] Milla Annalisa Monocytes (Bld) [#/Vol] 0.5 103/ul Normal 0.3-0.8 [facility] Comment on above: Performed By: #### C BC #### [facility] [address] [place] [address] Milla Annalisa Monocytes/100 WBC (Bld) 8.2 % Normal 1.7-12.0 [facility] Comment on above: Performed By: #### C BC #### [facility] [address] [place] [address] Milla Annalisa Neutrophils (Bld) [#/Vol] 3.1 103/ul Normal 1.4-6.5 [facility] Comment on above: Performed By: #### C BC #### [facility] [address] [place] [address] Milla Annalisa Neutrophils/100 WBC (Bld) 55.3 % Normal 43.0-75.0 [facility] Comment on above: Performed By: #### C BC #### [facility] [address] [place], [place] [id number] Milla Annalisa Platelet mean volume (Bld) [Entitic vol] 10.0 fL Normal 9.5-13.5 [facility] Comment on above: Performed By: #### C BC #### [facility] [address] [place], [place] [id number] Milla Annalisa Platelets (Bld) [#/Vol] 263 103/ul Normal 150-450 [facility] Comment on above: Performed By: #### C BC #### [facility] [address] [place], [place] [address] Milla Fang RBC (Bld) [#/Vol] 4.76 106/ul Normal 4.20-5.40 [facility] Comment on above: Performed By: #### C BC #### [facility] [address] [place], [place] [address] Milla Fang WBC (Bld) [#/Vol] 5.5 103/ul Normal 4.0-11.0 [facility] Comment on above: Performed By: #### C BC #### [facility] [address] [place], [place] [address] Milla Fang ECHOCARDIO M/2D COMPLETEon 0 08-27-2019 ECHOCARDIO M/2D COMPLETE Patient: JULIANN SILVA Exam Date: 08/27/2019 : 1960 Gender:F Ordering : DR ROSALBA TAYLOR M.D. Admission #: [id number] Family : Order #: [id number] CLICK HERE TO VIEW EXAM ECHOCARDIOGRAM REPORT PROCEDURE: CARDIO PULMONARY ECHOCARDIO M/2D COMP INDICATIONS: HESS COMPARISON: None. DESCRIPTION: COMPLETE ECHOCARDIOGRAM Real-time transthoracic echocardiography with 2D, M-mode, spectral and color flow Doppler performed. QUALITY: Technical quality was good. LEFT VENTRICLE: Normal chamber size. Normal left ventricular wall thickness. LV EF: Normal left ventricular ejection fraction, (>55%). DIASTOLIC: Normal diastolic function. ATRIAL SEPTUM: Intact atrial septum. LEFT ATRIUM: Normal chamber size. RIGHT ATRIUM: Normal chamber size. RIGHT VENTRICLE: Normal chamber size. Normal right ventricle function. TRICUSPID VALVE: Normal mobility and thickness. Normal with mild regurgitation. MITRAL VALVE: Normal mobility and thickness. There is no mitral annular calcification. Trace mitral regurgitation. AORTIC VALVE: Normal trileaflet appearance. No visible sclerosis. Normal leaflet mobility. No aortic regurgitation. AORTIC ROOT: Normal diameter and appearance. PULMONIC VALVE: Normal thickness and mobility. Normal with Trace regurgitation. PERICARDIUM: No evidence of pericardial effusion. IVC: Collapses with inspirations. CONCLUSION: Global left ventricular systolic function is normal. The right ventricle is normal in size and systolic function. Mild tricuspid regurgitation. Adult Echocardiography Procedure Report Left Ventricle LVEDD (3.7 - 5.6 cm): 4.90 cm LVESD (2.2 - 4.0 cm): 3.32 cm LVIVS thickness (0.6 - 1.2 cm): 9.14 mm LVPW thickness (0.5 - 1.0 cm): 8.82 mm e': 11.70 cm/s E - e': 4.70 LVOT Area (cm2): 3.14 cm2 LVOT Diameter 2.00 cm Left Ventricular Ejection Fraction: 60.40 % Left Atrium LA Volume Index (2D A2C): 27.30 ml/m2 Left Atrium Systolic Dimension: 3.40 cm Left Atrium Systolic Area(A2C): 17.50 cm2 Left Atrium Systolic Area(A4C): 20.20 cm2 Left Atrium Systolic Volume(A2C): 62482 mm3 Left Atrium Systolic Volume(A4C): 56618 mm3 Mitral Valve MV E to A Ratio: 0.90 Mitral Valve A-Wave Peak Velocity: 62.70 cm/s Mitral Valve E-Wave Peak Velocity: 54.80 cm/s Deceleration Time: 293 ms Right Ventricle Aorta AO Root Diam: 3.10 cm Aortic Valve AoV Area (Peak Andrés): 2.22 cm2 Peak Velocity(Antegrade Flow): 97.70 cm/s Peak Gradient(Antegrade Flow): 4 mm[Hg] Tricuspid Valve Peak Velocity (Regurgitant Flow): 188.00 cm/s, 212.00 cm/s Pulmonic Valve Peak Velocity: 86.10 cm/s Peak Gradient: 3 mm[Hg] Right Atrium Dictated by: Rick Angulo M.D. on 08/31/2019 at 09:37 Approved by: Rick Angulo M.D. on 08/31/2019 at 09:39 Normal [facility] LIPID PROFILEon 08-27-2019 CHOL-HDL RATIO NORM SEE BELOW Normal [facility] Comment on above: Result Comment: 3.3 - 4.4 LOW RISK 4.4 - 7.1 AVERAGE RISK 7.1 - 11.0 MODERATE RISK >11.0 HIGH RISK Performed By: #### L IPID, CMP #### [facility] [address] [place], [place] [address] Milla Annalisa Cholesterol [Mass/Vol] 258 mg/dL Critically high <=200 [facility] Comment on above: Performed By: #### L IPID, CMP #### [facility] [address] [place], [place] [address] Milla Annalisa Cholesterol in HDL [Mass/Vol] 77 mg/dL Normal [facility] Comment on above: Performed By: #### L IPID, CMP #### [facility] [address] [place], [place] [address] Milla Annalisa Cholesterol in HDL [Mass/Vol] > or = 60 mg/dl - LOW CARDIOVASCULAR RISK <40 mg/dl - HIGH CARDIOVASCULAR RISK Normal [facility] Comment on above: Performed By: #### L IPID, CMP #### [facility] [address] [place] [address] Milla Annalisa Cholesterol in LDL [Mass/Vol] 158.4 mg/dL Normal [facility] Comment on above: Performed By: #### L IPID, CMP #### [facility] [address] [place] [address] Milla Annalisa Cholesterol in LDL [Mass/Vol] SEE BELOW Normal [facility] Comment on above: Result Comment: <100 mg/dl OPTIMAL 100 - 129 mg/dl NEAR OR ABOVE OPTIMAL 130 - 159 mg/dl BORDERLINE HIGH 160 - 189 mg/dl HIGH >190 mg/dl VERY HIGH Performed By: #### L IPID, CMP #### [facility] [address] [place], [place] [id number] Milla Annalisa Cholesterol.total/ Cholesterol in HDL [Mass ratio] 3.4 {ratio} Normal [facility] Comment on above: Performed By: #### L IPID, CMP #### [facility] [address] [place], [place] [address] Milla Annalisa Triglyceride [Mass/Vol] 113 mg/dL Normal <=150 [facility] Comment on above: Performed By: #### L IPID, CMP #### [facility] [address] [place], [place] [address] Milla Annalisa VLDL CALC 22.6 mg/dL Normal [facility] Comment on above: Performed By: #### L IPID, CMP #### [facility] [address] [place], [place] [address] Milla Fang MG MAMM SCREEN CHANEL W CADon 0 08-27-2019 MG MAMM SCREEN CHANEL W CAD Patient: JULIANN SILVA Exam Date: 08/27/2019 : 1960 Gender:F Ordering : DR ROSALBA TAYLOR M.D. Admission #: [id number] Family : Order #: [id number] CLICK HERE TO VIEW EXAM RADIOLOGY REPORT PROCEDURE: MAMMOGRAM BILATERAL SCREENING DIGITAL WITH COMPUTER AIDED DETECTION COMPARISON: MG MAMM CHANEL SCRN W CAD DIG, 12/17/2014. INDICATIONS: Screening mammography Calculator Name NCI Breast Cancer Risk Assessment Tool 5 Year Breast Cancer Risk 1.60% Lifetime Breast Cancer Risk 7.90% Personal Breast Cancer No Personal Ovarian Cancer No Treatments None Family Cancers Mother with ovaria cancer at age 32. LOCATION: [facility] BREAST COMPOSITION: Heterogeneously dense, which may obscure small masses. FINDINGS: DIAGNOSTIC CATEGORY 1--NEGATIVE NO CHANGE FROM COMPARISON ASSESSMENT. Bilateral round mole markers. Scattered benign-appearing calcifications are present. Scattered benign-appearing lymph nodes are present. RIGHT BREAST: No significant suspicious finding. LEFT BREAST: No significant suspicious finding. RECOMMENDATIONS: ROUTINE MAMMOGRAM AND CLINICAL EVALUATION IN 12 MONTHS. PLEASE NOTE: A NORMAL MAMMOGRAM DOES NOT EXCLUDE THE POSSIBILITY OF BREAST CANCER. A CLINICALLY SUSPICIOUS PALPABLE LUMP SHOULD BE BIOPSIED. Dictated by: Deangelo Torres MD on 08/27/2019 at 10:03 Approved by: Deangelo Torres MD on 08/27/2019 at 10:06 Normal [facility] NM STRESS/REST MULTIon 08-26 NM STRESS/REST MULTI Patient: JULIANN SILVA Exam Date: 08/27/2019 : 1960 Gender:F Ordering : DR ROSALBA TAYLOR M.D. Admission #: [id number] Family : DR DEANGELO TORRES M.D. Order #: [id number] CLICK HERE TO VIEW EXAM RADIOLOGY REPORT PROCEDURE: RADIONUCLIDE IMAGING STRESS/REST MULTI COMPARISON: None. INDICATIONS: Dyspnea on exertion TECHNIQUE: Exam Description: Rest/Stress one day protocol gated SPECT Rest Imagin.3 mCi Tc-99m Cardiolite IV on 08/27/2019 Stress Imaging 29.1 mCi Tc-99m Cardiolite IV on 08/27/2019 Exercise Protocol: Johny Heart Rate (bpm): Rest: 86 Max: 149 PMHR: 94 Blood Pressure: Rest: 122/80 Max: 186/90 Exercise Time: Minutes: 8 Seconds: 00 Stage Reached: Stage: 3 Mets 10.1 Symptoms: Rest and peak stress ECG findings were non-diagnostic and the exercise portion of the study was Non-diagnostic per attending physician Dr. Jaylan Palomares . For more details please see separate cardiac stress test report. FINDINGS: QUALITY OF STUDY: Excellent. PERFUSION DEFECT: None. LOCATION: N/A SIZE: N/A. SEVERITY: N/A. TYPE: N/A. WALL MOTION: Normal. LV SIZE: Normal. 72 mL. TID / TCD: None; 0.8 LVEF: Calculated EF 75%. SUMMARY: Myocardial perfusion imaging study is NORMAL. CONCLUSION: 1. Normal myocardial perfusion scan, no reversible ischemia 2. Nondiagnostic exercise test Dictated by: Deangelo Torres MD on 08/27/2019 at 15:33 Approved by: Deangelo Torres MD on 08/27/2019 at 15:35 Normal [facility] PROF 14(COMP METB)on 020 Albumin [Mass/Vol] 3.9 g/dL Normal 3.5-5.0 [facility] Comment on above: Performed By: #### L ALEJANDRO CMP #### [facility] [address] [place] [address] Milla Annalisa Albumin/Globulin [Mass ratio] 1.1 {ratio} Normal [facility] Comment on above: Performed By: #### L ALEJANDRO CMP #### [facility] [address] [place] [address] Milla Annalisa ALP [Catalytic activity/Vol] 73 U/L Normal 38-126 [facility] Comment on above: Performed By: #### L ALEJANDRO, CMP #### [facility] [address] [place] [address] Milla Annalisa ALT [Catalytic activity/Vol] 39 U/L Normal 9-52 [facility] Comment on above: Performed By: #### L ALEJANDRO CMP #### [facility] [address] [place] [address] Milla Annalisa Anion gap [Moles/Vol] 13.3 mmol/L Normal [facility] Comment on above: Performed By: #### L IPID, CMP #### [facility] [address] [place] [address] Milla Annalisa AST [Catalytic activity/Vol] 19 U/L Normal 14-36 [facility] Comment on above: Performed By: #### L IPID, CMP #### [facility] [address] [place] [address] Milla Annalisa Bilirubin Ql (U) 0.9 mg/dL Normal 0.2-1.3 [facility] Comment on above: Performed By: #### L IPID, CMP #### [facility] [address] [place] [address] Milla Annalisa Calcium [Mass/Vol] 8.9 mg/dL Normal 8.4-10.2 [facility] Comment on above: Performed By: #### L IPID, CMP #### [facility] [address] [place] [address] Milla Annalisa Chloride [Moles/Vol] 102 mmol/L Normal 98-107 [facility] Comment on above: Performed By: #### L IPMECCA, CMP #### [facility] [address] [place] [address] Milla Annalisa CO2 [Moles/Vol] 27.8 mmol/L Normal 22.0-30.0 [facility] Comment on above: Performed By: #### L IPID, CMP #### [facility] [address] [place] [address] Milla Annalisa Creatinine [Mass/Vol] 0.82 mg/dL Normal 0.52-1.04 [facility] Comment on above: Performed By: #### L IPID, CMP #### [facility] [address] [place], [place] [address] Milla Annalisa EGFR-AF LAO >60 Normal >=60 [facility] Comment on above: Performed By: #### L IPID, CMP #### [facility] [address] [place], [place] [address] Milla Annalisa EGFR-NON AF LAO >60 Normal >=60 [facility] Comment on above: Performed By: #### L IPID, CMP #### [facility] [address] [id number] Milla Annalisa Globulin (S) [Mass/Vol] 3.7 g/dL Normal [facility] Comment on above: Performed By: #### L IPID, CMP #### [facility] [address] [address] Milla Annalisa Glucose [Mass/Vol] 111 mg/dL Critically high 74-106 T [facility] Comment on above: Performed By: #### L IPID, CMP #### [facility] [address] [place] [address] Milla Annalisa Potassium [Moles/Vol] 4.1 mmol/L Normal 3.4-5.0 [facility] Comment on above: Performed By: #### L IPID, CMP #### [facility] [address] [place] [address] Milla Annalisa Protein [Mass/Vol] 7.6 g/dL Normal 6.1-8.2 [facility] Comment on above: Performed By: #### L IPID, CMP #### [facility] [address] [place] [address] Milla Annalisa Sodium [Moles/Vol] 139 mmol/L Normal 137-145 [facility] Comment on above: Performed By: #### L IPID, CMP #### [facility] [address] [place] [address] Milla Annalisa Urea nitrogen [Mass/Vol] 11.0 mg/dL Normal 7.0-17.0 [facility] Comment on above: Performed By: #### L IPID, CMP #### [facility] [address] [place], [place] [address] Milla Annalisa Urea nitrogen/Creatinin e [Mass ratio] 13.4 mg/mg Normal [facility] Comment on above: Performed By: #### L IPID, CMP #### [facility] [address] [place], [place] [id number] Milla Annalisa Vital Signs Date Time Vital Sign Value Performing Clinician Facility 05-28-2024 08:49-0400 Body height 165.1 cm [facility] 05-28-2024 08:49-0400 Body mass index (BMI) [Ratio] 31.8 kg/m2 [facility] 05-28-2024 08:49-0400 Body weight 86.63 kg [facility] 05-28-2024 08:49-0400 Diastolic blood pressure 72 mm[Hg] [facility] 05-28-2024 08:49-0400 Heart rate 78 /min [facility] 05-28-2024 08:49-0400 Systolic blood pressure 108 mm[Hg] [facility] 11-05-2023 14:41-0400 Body height 165.1 cm [facility] 11-05-2023 14:41-0400 Body mass index (BMI) [Ratio] 31.6 kg/m2 [facility] 11-05-2023 14:41-0400 Body weight 86.18 kg [facility] 09-13-2022 10:45-0400 Body height 165.1 cm Shaun [place] [facility] Other [facility] Other 09-13-2022 10:45-0400 Body mass index (BMI) [Ratio] 31.78 kg/m2 [facility] [place] [facility] Other [facility] Other 09-13-2022 10:45-0400 Body weight 86.64 kg Shaun [place] [facility] Other [facility] Other 05-29-2022 16:30-0400 Body height 165.1 cm Rosalba Taylor Other [facility] Other 05-29-2022 16:30-0400 Body mass index (BMI) [Ratio] 32.45 kg/m2 Rosalba Taylor Other [facility] Other 05-29-2022 16:30-0400 Body weight 88.45 kg Rosalba Taylor Other [facility] Other 05-29-2022 16:30-0400 Diastolic blood pressure 78 mm[Hg] Rosalba Taylor Other [facility] Other 05-29-2022 16:30-0400 SaO2% (BldA) [Mass fraction] 97 % Rosalba Taylor Other [facility] Other 05-29-2022 16:30-0400 Systolic blood pressure 136 mm[Hg] Rosalba Taylor Other [facility] Other Encounters Encounter Date Encounter Type Care Provider Facility Start: 05-28-2024 End: 05-28-2024 ambulatory [facility] [place] Work Phone: Start: 05-28-2024 End: 05-28-2024 Patient encounter procedure [facility] [place] Work Phone: Start: 11-05-2023 End: 11-05-2023 ambulatory [facility] [place] Work Phone: Start: 11-05-2023 End: 11-05-2023 Patient encounter procedure [facility] [place] Work Phone: Start: 08-29-2023 Non-patient / Non-visit [facility] [place] Work Phone: Start: 02-22-2023 End: 02-22-2023 ambulatory Rosalba Taylor Other [facility] Other Start: 02-22-2023 Telephone encounter Rosalba Taylor [facility] Start: 11-21-2022 End: 11-21-2022 ambulatory Rosalba Taylor Other [facility] Other Start: 11-21-2022 Telephone encounter Rosalba Taylor [facility] Start: 10-01-2022 End: 10-01-2022 ambulatory Rosalba Taylor Other [facility] Other Start: 10-01-2022 Telephone encounter Rosalba Taylor [facility] Start: 09-13-2022 End: 09-13-2022 ambulatory Shaun [place] [facility] Other [facility] Other Start: 09-13-2022 Office outpatient vi sit 25 minutes Shaun [place] [facility] Start: 08-09-2022 End: 08-09-2022 ambulatory Rosalba Taylor Facility:[facility] Start: 08-09-2022 End: 08-09-2022 ambulatory MD Rosalba Taylor Work Phone: [facility] Work Phone: Start: 08-09-2022 End: 08-09-2022 Discharged Recurring MD Rosalba Taylor Work Phone: [facility] [place] Start: 07-27-2022 Office outpatient ne w 45 minutes Shaun Kishore II [facility] Start: 07-27-2022 End: 07-27-2022 ambulatory Shaun M [place] [facility] Other Start: 07-27-2022 End: 07-27-2022 Patient encounter procedure MD Rosalba Taylor Work Phone: [facility] Start: 05-29-2022 End: 05-29-2022 ambulatory Rosalba Taylor Other [facility] Other Start: 05-29-2022 Office outpatient vi sit 15 minutes Rosalba Taylor [facility] Start: 07-14-2021 Adult health examination Shaun [place] [facility] Other [facility] Other Start: 11-18-2019 End: 11-18-2019 Patient encounter procedure MARK FUNES Facility: Start: 11-13-2019 End: 11-14-2019 Patient encounter procedure MARK FUNES Facility:[facility] Start: 09-12-2019 Encounter for genera l adult medical examination without abnormal findings ROSALBA TAYLOR [facility] Start: 08-27-2019 End: 08-28-2019 Patient encounter procedure ROSALBA TAYLOR Facility:[facility] Encounter for genera l adult medical examination without abnormal findings ROSALBA TAYLOR [facility] Procedures Date Procedure Procedure Detail Performing Clinician Start: 07-27-2022 Pelvis X-ray MD Rosalba Taylor Work Phone: Start: 07-27-2022 X-ray of both knees MD Rosalba Taylor Work Phone: Start: 09-03-2017 Screening for malign ant neoplasm of colon Shaun [facility] Other Start: 01-12-2014 Screening mammography R diana Kishore II Other Screening for malign ant neoplasm of breast Shaun Novak II Other Plan of Treatment Date Care Activity Detail Author Comprehensive metabo lic 2000 panel - Serum or Plasma [facility] enter DXA Skeletal system. axial Views for bone density [facility] enter MG Breast - bilateral Screening [facility] XR Chest 2 Views [facility] Immunizations Immunization Date Immunization Notes Care Provider Fa issac 11-05-2023 Pneumococcal Conjuga te Vaccine, 20 valent [facility] 02-24-2019 influenza virus vaccine, split virus (incl. purified surface antigen) Shaun Kishore NUNEZ Other [facility] Other 02-24-2019 influenza virus vaccine, unspecified formulation [facility] Payers Date Payer Category Payer Self-pay 1959 Unknown [id number] 1960 Unknown [id number] 1960 Unknown [id number] 1960 Unknown [id number] Medicare [employer] MCR PFF S [id number] Unknown [id number] Unknown [id number] Unknown MMO MCR Adv PFFS [id number] Social History Date Type Detail Facility Unknown if ever smoked [facility] Other Sex Assigned At Sex Assigned At Bir th [facility] Other Start: 1960 Sex Assigned At Female F [facility] Tobacco smoking status NHIS Unknown if ever smoked [facility] Work Phone: Start: 05-28-2024 Sex Female (finding) [facility] Evaluation note 11-21-2022 Note Date & Type Note Facility 11-21-2022 Evaluation note Encounter Date Diagnosis Assessment Notes Nov, Primary osteoarthritis of left knee (ICD-10 - M17.12) [facility] Other Evaluation note 09-13-2022 Note Date & Type Note Facility 09-13-2022 Evaluation note Encounter Date Diagnosis Assessment Notes Aug, Primary osteoarthritis of left knee (ICD-10 - M17.12) Aug, Primary osteoarthritis of right knee (ICD-10 - M17.11) Aug, Acute pain of left knee (ICD-10 - M25.562) Aug, Pain in right leg (ICD-10 - M79.604) Aug, Pain in left leg (ICD-10 - M79.605) Aug, Other We discussed her symptoms again today at this point I do not feel that this is an orthopedic problem. While she does have arthritis on her x-rays of both knees its mild arthritis and it does not appear that her symptoms are even consistent with knee arthritis at this time. Furthermore, she did not get any benefit whatsoever from the anti-inflammato delisa. It almost sounds like she is describing over excitement of nerves in her bilateral lower extremities. At this point I do not feel I have something to offer her. We did discuss possible evaluations by neurology or even rheumatology to determine if there is something going on from their standpoint. [facility] Other Evaluation note 07-27-2022 Note Date & Type Note Facility 07-27-2022 Evaluation note Encounter Date Diagnosis Assessment Notes Jul, Acute pain of left knee (ICD-10 - M25.562) Jul, Primary osteoarthritis of left knee (ICD-10 - M17.12) Jul, Primary osteoarthritis of right knee (ICD-10 - M17.11) Jul, Other 1. We had a long discussion with the patient today concerning their left and right knee osteoarthritis. The radiographs do show osteoarthritis of the knee. At this time the patient would like to avoid surgical intervention. We did discuss the risk and benefits of surgical versus nonoperative management. The patient would like to proceed with nonoperative management. We discussed that our options include injections, physical therapy, and the consistent use of anti-inflammator ies. All 3 of these options, including their risks and benefits, were discussed at length with the patient. 2. Tylenol: Discussed taking Tylenol (acetaminophen). Recommended adjusting their dosing to 1000mg by mouth up to 3 times a day. 3. NSAIDs: Prescribed the patient 15 mg Mobic (meloxicam) to be taken by mouth daily. Prescribed Voltaren gel to use 4-5 times a day 4. Physical therapy: Discussed formal physical therapy and home regimen. Recommended that she continue with her formal physical therapy for quad strengthening 5. Injections: Discussed injections as a treatment option. If patient's not getting relief with her more consistent anti-inflammator y then she will call and we can consider bilateral knee steroid injections 6. Follow up as needed [facility] Other Evaluation note 05-29-2022 Note Date & Type Note Facility 05-29-2022 Evaluation note Encounter Date Diagnosis Assessment Notes May, Left medial knee pain (ICD-10 - M25.562) Order for physical therapy printed and given to patient. Discussed potential x-ray Ortho referral and even MRI. Without history of injury, doubt utility of any of these steps initially prior to doing some physical therapy. Patient was open to do so. Also suggested qieg-keg-[id number] ter Voltaren gel. [facility] Other Evaluation note Note Date & Type Note Facility Evaluation note No assessment information availa ble [facility] Work Phone: Evaluation note Note Date & Type Note Facility Evaluation note No Information [email or web address] Other Evaluation note Note Date & Type Note Facility Evaluation note Diagnosis Onset Date Essential (primary) hypertension acute Menopause acute Screening mammogram for breast cancer acute Encounter for initial annual wellness visit in Medicare patient noneactive [facility] Work Phone: Evaluation note Note Date & Type Note Facility Evaluation note Diagnosis Onset Date Resolution Chronic cough acute May 28, 2024 8:42am [facility] Work Phone: History general Narrative - Reported Note Date & Type Note Facility History general Narrative - Reported Type Medical History Essential (primary) hypertension Medical History Gastric reflux syndrome Medical History Transfusion history Surgical History D&C / HYSTEROSCOPY 2001 Hospitalization History SEE SURGICAL HX [facility] Other Summary Purpose Family History Relationship Condition Age at Onset Recorded Date/T la father Unknown Hypertension Unknown mother History of ovarian cancer Unknown Malignant neoplasm Unknown sister Diabetes mellitus Unknown Advance Directives Advance Directive Response Recorded Date/ Time Advance Directives No June 14 023 10:56am Procedure Findings Note OPERATIVE NOTE OPERATION ERIS E: 11-18-19 ANESTHETIC:Monitored anesthesia care. PREOPERATIVE DIAGNOSIS:Colorectal screening. POSTOPERATIVE DIAGNOSIS:Normal colonoscopy to the cecum. PROCEDURE NAME:Colonoscopy to the cecum. ESTIMATED BLOOD LOSS: Zero. INDICATIONS AND CONSENT: The patient is a 59 year-old female who presents for colorectal screening. Indications, risks, benefits, and alternatives of proceeding with colonoscopy were explained extensively to the patient including the risk of bleeding, colon perforation, or anesthetic complications. All of her questions were answered and informed consent was obtain. PROCEDURE: The patient was brought to the OR and placed in the left lateral decubitus position. Monitored anesthesia care was provided. Rectal exam was performed which showed no masses or blood. The scope was inserted into the anal canal. Under direct visualization it was advanced. It was advanced to the cecum where cecal markings were clearly identified. There was noted to be a g (more content not included)... Chief Complaint and Reason for Visit Chief Complaint M25.562 L knee pain Chief Complaint Amb Documentation Welcome to Medicare Reason for Visit Essential (primary) hypertension Menopause Screening mammogram for breast cancer Encounter for initial annual wellness visit in Medicare patient Chief Complaint Admit Date BP Med Concerns May 28, 2024 8:4 2am Reason for Visit Admit Date Chronic cough May 28, 2024 8:4 2am Additional Source Comments INFORMATION SOURCE (unrecogn ized section and content) DATE CREATED AUTHOR 11/20/2019 Mckenzie Wallace [facility] DATE CREATED AUTHOR AUTHOR'S ORGANIZ ATION 12/02/2019 [facility] DATE CREATED AUTHOR AUTHOR'S ORGANIZ ATION 08/10/2022 [facility] REASON FOR VISIT (unrecogniz ed section and content) Left LegCONSULT DR Elsie Vivas T KNEE PAIN NXOP SP BILAT KNEE PAINoffice notes need lockedmessageNo Information Care Teams (unrecognized sec tion and content) Team Status: Active Member Role Status Jeremie Taylor MD Primary Care Provider Active Team Status: Inactive Member Role Status Jeremie Taylor MD Primary Care Provide r, Attending Provider Active Start: May 28, 2024 End: May 28, 2024 Team Status: Active Member Role Status Jeremie Taylor MD Primary Care Provider Active Team Status: Active Member Role Status Jeremie Taylor MD Primary Care Provider Active Start: August 29, 2023 Rose Mary Hernandez LPN Attending Provider Active St art: August 29, 2023 Team Status: Inactive Member Role Status Jeremie Taylor MD Primary Care Provide r, Attending Provider Active Start: November 05, 2023 End: November 05, 2023 Team Status: Inactive Member Role Status Jeremie Taylor MD Primary Care Provider, Edmund carter Active Team Status: Inactive Member Role Status Jeremie Taylor MD Primary Care Provider Active Shaun Novak II, MD Attending Provider Active Team Status: Inactive Member Role Status Jeremie Taylor MD Primary Care Provide r, Attending Provider Active Start: May 28, 2024 End: May 28, 2024 Goals (unrecognized section and content) Goals may be documented in a n alternate section FOR RECORDS PERTAINING TO PATIENTS WHO ARE OR HAVE BEEN ENROLLED IN A CHEMICAL DEPENDENCY/SUBSTANCEABUSE PROGRAM, SOME INFORMATION MAY BE OMITTED. This clinical summary was aggregated from multiple sources. Caution should be exercised in using it in the provision of clinical care. This summary normalizes information from multiple sources, and as a consequence, information in this document may materially change the coding, format and clinical context of patient data. In addition, data may be omitted in some cases. CLINICAL DECISIONS SHOULD BE BASED ON THE PRIMARY CLINICAL RECORDS. [facility]. provides no warranty or guarantee of the accuracy or completeness of information in this document.
== END 2024-05-28 09:40 | disposition home or self-care (01) ==
LOC: RAD 09:45
PROVIDERS: PCP Family Medicine; Visit Provider Family Medicine
DX: R05.3 Chronic cough (principal)
CPT/HCPCS: 71046

== ENCOUNTER 2024-12-03 14:22 | Outpatient (OUT) | payer MEDICARE, SELFPAY ==
--- NOTE | 2024-12-03 14:28 | MM_ITS ---
Patient Name: JULIANN SILVA MR#: [id number] : 1960 Exam Date: 12/03/2024 Ordering Doctor: DR NADEGE TAYLOR M.D. RADIOLOGY REPORT PROCEDURE: MM TOMOSYNTHESIS SCREENING BI COMPARISON: MM TOMOSYNTHESIS SCREENING BI, 11/19/2023. MG MAMM SCREEN CHANEL W CAD, 08/27/2019. MG MAMM CHANEL SCRN W CAD DIG, 12/17/2014. INDICATIONS: Screening Calculator Name NCI Breast Cancer Risk Assessment Tool 5 Year Breast Cancer Risk 1.90% Lifetime Breast Cancer Risk 6.70% Personal Breast Cancer No Personal Ovarian Cancer No Treatments None Family Cancers Mother with ovaria cancer at age 32. LOCATION: [facility] BREAST COMPOSITION: The breasts are heterogeneously dense, which may obscure small masses. FINDINGS: RIGHT BREAST: No significant suspicious finding. LEFT BREAST: No significant suspicious finding. DIAGNOSTIC CATEGORY 1--NEGATIVE. RECOMMENDATIONS: ROUTINE MAMMOGRAM AND CLINICAL EVALUATION IN 12 MONTHS. Dictated by: John Smith MD on 12/03/2024 at 15:42 Approved by: John Smith MD on 12/03/2024 at 15:45
--- OUTSIDE RECORDS SUMMARY | 2024-12-03 14:28 | XMS_ITS | CCD ---
Author Organization [facility] Care Team Providers Care Sash Maker Name Role Phone ROSALBA TAYLOR Admitting Unavailable [...] Unavailable Rosalba Taylor Unavailable Shaun Novak II Unavailable [phone] Shaun Novak II Attending UnavailShaun Pacheco II Admitting UnavailRosalba Kim Primary Care Unavailable Rosalba Taylor Admitting Unavailable Rosalba Taylor Attending Unavailable Rosalba Taylor Primary Care Unavailable MD Rosalba Taylor Primary Care Provider MD Shaun Novak II Attending Provider [phone] MD Rosalba Taylor Attending Provider [phone] Rosalba Taylor MD Primary Care Provider [phone] Rosalba Taylor MD Attending Provider Allergies Allergy Classification Reported Allergen(s) Allergy Type Date of Onset Reaction(s) Facility (4 sources) patient allergy list reviewed by nurse or physicia Propensity to adverse reactions 8 Comment:Done [facility] Other (4 sources) Allergies Reconciled Propensity to adverse reactions Unknown [facility] Other Medications Current Medications Medication Drug Class(es) [...] day Active meloxicam 15 mg oral tablet (15 sources) Nonsteroidal Anti-inflammatory Drug Start: End: take 1 tablet by mouth once daily Meloxicam 15 mg tablet Active 0 .ROUTE .COMPLEX November 10, 2024 1:33pm TAKE 1 TABLET BY MOUTH EVERY DAY Complies with drug therapy Start: 11-05-2023 End: 08-06-2024 take 1 tablet by mouth once daily Meloxicam 15 mg tablet Discontinued 15 MG PO Daily May 11, 2024 8:30am August 06, 2024 12:17pm Start: 07-27-2022 take 1 tablet by gala th every twenty-four hours Meloxicam 15 MG 1 tablet Orally Once a day for 90 days Jul, Active Completed/Discontinued Medications Medication Drug Class(es) Dates Sig (Normalized) Sig (Original) amLODIPine 10 mg / valsartan 160 mg oral tablet (17 sources) Dihydropyridine Calcium Channel Lukasz, Angiotensin 2 Receptor Lukasz Start: 08-29-2023 End: 05-28-2024 take 1 tablet by mouth once daily Amlodipine-Valsart an 10-160 mg tablet Discontinued 1 TAB PO Daily March 04, 2024 9:15am May 28, 2024 9:21am amLODIPine Besyl ate-Valsartan 10-160 mg TAKE 1 TABLET DAILY Active diclofenac sodium 0.01 mg/mg topical gel (8 sources) Nonsteroidal Anti-inflammatory Drug Start: 11-05-2023 End: [...] Jul, Active ibuprofen 600 mg oral tablet (8 sources) Nonsteroidal Anti-inflammatory Drug Start: 11-05-2023 End: [...] reflux disease without esophagitis] Chronic Essential hypertension (12 sources) Essential (primary) hypertension; Translations: [Essential hypertension] Onset: 01-12-2014 11-05-2023 Chronic Heart valve disorders (1 source) Rheumatic tricuspid insufficiency; Translations: [RHEUMATIC TRICUSPID INSUFFICIENCY] Onset: 09-12-2019 Chronic Immunizations and screening for infectious disease (4 sources) Contact with and (suspected) exposure to other viral communicable diseases; Translations: [CONTCT EXPS OTH VIRL COMMUNICABL DZ] Onset: 11-13-2019 Episodic Osteoarthritis (17 sources) Osteoarthritis of right knee joint; Translations: [...] of dyspnea] Episodic Other lower respiratory disease (3 sources) Chronic cough; Translations: [Chronic cough] 05-28-2024 Episodic Other lower respiratory disease (1 source) Dyspnea on exertion; Translations: [Other forms of dyspnea] 11-10-2024 Episodic Other non-traumatic joint disorders (3 sources) Pain in left knee Episodic Other nutritional; endocrine; and metabolic disorders (4 sources) Obese class I; Translations: [Body mass index (BMI) 32.0-32.9, adult] Chronic Other screening for suspected conditions (not mental disorders or infectious disease) (12 sources) Encounter for screening for malignant neoplasm [...] Translations: [Transfusion history] Episodic Residual codes; unclassified (3 sources) Menopause present; Translations: [Asymptomatic menopausal state] [...] BI 4Von 07-27-2022 XR knee BI 4V [facility] Main [place] [address] [place] [address] XRay Report Signed Patient: Juliann Silva MR#: [id number] : 1960 Acct:[id number] Age/Sex: 61 / F ADM Date: 07/27/22 Loc: [facility] Room: Type: [facility] Attending Dr: Shaun Novak II, MD Copies to: Shaun Novak MD Ordering Provider: Shaun Novak MD Date of Service: 07/27/22 XR/XR knee BI 4V: Acute pain of left knee ([id number]) XR/XR pelvis 1-2V: Acute pain of left [...] Quinton Hughes M.D.07/27/2022 2:10 PM Dictation Location: [place] [address] Transcribed By: [facility] 07/27/22 1410 Dictated By: Quinton Hughes DO 07/27/22 1404 Signed By: 07/27/22 1410 Normal [facility] XR knee BI 4V [email or web address] Other XR knee BI 4V [facility] Main [facility] [employer] Other XR knee BI 4V [address] [place] [address] [employer] Other XR knee BI 4V [address] [employer] Other XR knee BI 4V [email or web address] Other XR knee BI 4V Signed [facility] Other XR knee BI 4V Patient: Juliann Silva MR#: [id number] [place] [employer] Other XR knee BI 4V : 1960 Acct:[id number] [place] [facility] Other XR knee BI 4V Age/Sex: 61 / F ADM Date: 07/27/22 [facility] Other XR knee BI 4V Loc: [facility] Room: Type : [facility] Other XR knee BI 4V Attending Dr: Shaun Novak II, MD [facility] Other XR knee BI 4V Copies to: Shaun Novak MD [facility] Other XR knee BI 4V Ordering Provider: Shaun Novak MD [facility] Other XR knee BI 4V Date of Service: 07/27/22 [facility] Other XR knee BI 4V XR/XR knee BI 4V: Acute pain of left knee [facility] Other XR knee BI 4V ([id number]) XR/XR pelvis 1-2V: Acute pain of left knee [facility] Other XR knee BI 4V Single view of the pelvis plain film [facility] Other XR knee BI 4V HISTORY: Bilateral knee pain greater on the left [facility] Other XR knee BI 4V COMPARISON: None [facility] Other XR knee BI 4V SI JOINTS Intact [facility] Other XR knee BI 4V HIPS adequate joint spaces. No significant hip degeneration. Spurring of the greater trochanters [facility] Other XR knee BI 4V greater on the left. N [employer] Other XR knee BI 4V FRACTURE: No fracture [facility] Other XR knee BI 4V BONY ALIGNMENT: Adequate [facility] Other XR knee BI 4V SOFT TISSUES: Unremarkable [facility] Other XR knee BI 4V LOWER LUMBAR SPINE: Unremarkable [facility] Other XR knee BI 4V INTRAPELVIC STRUCTURES: Unremarkable [facility] Other XR knee BI 4V POSTSURGICAL CHANGES:None [facility] Other XR knee BI 4V XR/XR pelvis 1-2V [facility] Other XR knee BI 4V IMPRESSION:Unremarka b le hip joints. Spurring of the greater trochanters. [facility] Other XR knee BI 4V 4 views both knee plain film [facility] Other XR knee BI 4V ACUTE FINDINGS: None N [employer] Other XR knee BI 4V DEGENERATIVE CHANGE: Moderate patellofemoral and medial compartment joint space tiny marginal [facility] Other XR knee BI 4V spurring. [facility] Other XR knee BI 4V SOFT TISSUE FINDINGS : Unremarkable [facility] Other XR knee BI 4V JOINT EFFUSION: Smal l bilateral joint effusions. [facility] Other XR knee BI 4V POSTOP CHANGES: None N [employer] Other XR knee BI 4V BONE MINERALIZATION: Adequate [facility] Other XR knee BI 4V IMPRESSION: Moderate bilateral knee degeneration. Small joint effusions. [facility] Other XR knee BI 4V Impression dictated by: Quinton Hughes M.D.07/27/2022 2:10 PM [facility] Other XR knee BI 4V Dictation Location: [place] [address] [facility] Other XR knee BI 4V Transcribed By: PWS 07/27/22 [facility] Other XR knee BI 4V Dictated By: Quinton Hughes DO 07/27/22 [facility] Other XR knee BI 4V Signed By: [facility] Other XR knee BI 4V 07/27/22 [facility] [employer] Other Outside Colonoscopyon 2019 Outside Colonoscopy [id number] .00CD:127 Normal [facility] Lab Reportson 11-16-2019 Lab Reports [id number]. 00CD:127 Normal [facility] COVID-19 PCRon 11-14-2019 SARS-CoV-2, LILIANA Not Detected Normal Not Detected [facility] Comment on above: Result Comment: This nucleic acid amplification test was developed and its performance characteristics determined by [employer] Nucleic acid amplification tests include PCR and [...] Performed By: #### C VDPCR, CVDSTAT #### [facility] [address] [place] [address] Milla Fang PRIORITY COVID PROCESSINGon 11-14-2019 Comment Comment Normal [facility] Comment on above: Result Comment: Rece ived Performed By: #### C VDPCR, CVDSTAT #### [facility] [address] [place] [address] Milla Fang [facility] ROSALBA TAYLOR [address] [place] [address] Re: JULIANN SILVA Date of : 1960 Thank you for your referral of Juliann Silva who was seen on consultation on 11/03/2019 for colorectal screening. I have enclosed my consultation notes for your review. Her procedure is scheduled for 11/18/2019. Sincerely, Mark Funes MD General Surgery [facility] Consent for Procedure/Surger yon 11-06-2019 Consent for Procedure/Surgery [id number] .00CD:127 [facility] Ambulatory Clinical Summaryo n 11-03-2019 Ambulatory Clinical Summary {[id number]}CD:[id number] Normal [facility] General Surgery Office/Clini c Noteon 11-03-2019 General [...] neoplasm of female genital organ: Mother. Normal [facility] Comment on above: Result Comment: Sita edmondson Signed By: SEEMA STEEL, Mark Davila\Date and Time Signed: 11/03/19 16:01 EDT Patient Educationon 11-03-19 Patient Education Family Medicine Colonoscopy A colonoscopy [...] ? Medicines taken, including vitamins, herbs, eyedrops, mtwh-qvm-uobpdeu medicines, and creams. ? Use of steroids [...] medicines have worn off. ? Only take djkk-nme-pmdclzz or prescription medicines for pain, discomfort, or [...] Document Reviewed: 09/16/2008 ExitCare? Patient Information ?2013 [employer]. Colonoscopy Care After Read the instructions outlined [...] Document Reviewed: 09/16/2008 ExitCare? Patient Information ?2013 [employer]. Normal [facility] Consultation Noteon 10-28-19 20 Consultation Note [id number] .00CD:127 Normal [facility] CBC AUTO DIFFon 08-27-2019 Basophils (Bld) [#/Vol] 0.1 103/ul Normal 0.0-0.1 [facility] Comment on above: Performed By: #### C BC #### [facility] [address] [place], [place] [address] Millasascha Fang Basophils/100 WBC (Bld) 1.1 % Normal 0.2-2.0 [facility] Comment on above: Performed By: #### C BC #### [facility] [address] [place] [address] Milla Annalisa Eosinophils (Bld) [#/Vol] 0.1 103/ul Normal 0.0-0.7 [facility] Comment on above: Performed By: #### C BC #### [facility] [address] [place], [place] [id number] Milla Annalisa Eosinophils/100 WBC (Bld) 2.0 % Normal 0.9-7.0 [facility] Comment on above: Performed By: #### C BC #### [facility] [address] [place] [address] Milla Annalisa Erythrocyte distribution width (RBC) [Ratio] 12.9 % Normal 11.0-15.0 [facility] Comment on above: Performed By: #### C BC #### [facility] [address] [place] [address] Milla Annalisa Hematocrit (Bld) [Volume fraction] 42.9 % Normal 36.0-48.0 [facility] Comment on above: Performed By: #### C BC #### [facility] [address] [place] [address] Milla Annalisa Hemoglobin (Bld) [Mass/Vol] 14.1 g/dL Normal 12.0-16.0 [facility] Comment on above: Performed By: #### C BC #### [facility] [address] [place] [address] Milla Annalisa IG # 0.01 10e3/ul Normal 0.00-0.03 [facility] Comment on above: Performed By: #### C BC #### [facility] [address] [place] [address] Milla Annalisa IG % 0.2 % Normal 0.0-0.5 [facility] Comment on above: Performed By: #### C BC #### [facility] [address] [place], [place] [id number] Milla Annalisa Lymphocytes (Bld) [#/Vol] 1.8 103/ul Normal 1.2-3.8 [facility] Comment on above: Performed By: #### C BC #### [facility] [address] [place], [place] [address] Millasascha Fang Lymphocytes/100 WBC (Bld) 33.2 % Normal 20.5-60.0 [facility] Comment on above: Performed By: #### C BC #### [facility] [address] [place], [place] [id number] Milla Fang MANUAL DIFF REQ NO Normal [facility] Comment on above: Performed By: #### C BC #### [facility] [address] [place], [place] [address] Millasascha Fang MCH (RBC) [Entitic mass] 29.6 pg Normal 26.7-34.0 [facility] Comment on above: Performed By: #### C BC #### [facility] [address] [place], [place] [address] Millasascha Fang MCHC (RBC) [Mass/Vol] 32.9 g/dL Normal 29.9-35.2 [facility] Comment on above: Performed By: #### C BC #### [facility] [address] [place] [address] Millasascha Fang MCV (RBC) [Entitic vol] 90.1 fL Normal 81.0-99.0 [facility] Comment on above: Performed By: #### C BC #### [facility] [address] [place] [address] Millasascha Fang Monocytes (Bld) [#/Vol] 0.5 103/ul Normal 0.3-0.8 [facility] Comment on above: Performed By: #### C BC #### [facility] [address] [place] [address] Millasascha Fang Monocytes/100 WBC (Bld) 8.2 % Normal 1.7-12.0 [facility] Comment on above: Performed By: #### C BC #### [facility] [address] [place], [place] [address] Milla Annalisa Neutrophils (Bld) [#/Vol] 3.1 103/ul Normal 1.4-6.5 [facility] Comment on above: Performed By: #### C BC #### [facility] [address] [place] [address] Milla Fang Neutrophils/100 WBC (Bld) 55.3 % Normal 43.0-75.0 [facility] Comment on above: Performed By: #### C BC #### [facility] [address] [place], [place] [address] Milla Fang Platelet mean volume (Bld) [Entitic vol] 10.0 fL Normal 9.5-13.5 [facility] Comment on above: Performed By: #### C BC #### [facility] [address] [place], [place] [address] Milla Fang Platelets (Bld) [#/Vol] 263 103/ul Normal 150-450 [facility] Comment on above: Performed By: #### C BC #### [facility] [address] [place], [place] [address] Milla Fang RBC (Bld) [#/Vol] 4.76 106/ul Normal 4.20-5.40 [facility] Comment on above: Performed By: #### C BC #### [facility] [address] [place], [place] [address] Milla Fang WBC (Bld) [#/Vol] 5.5 103/ul Normal 4.0-11.0 [facility] Comment on above: Performed By: #### C BC #### [facility] [address] [place] [address] Milla Fang ECHOCARDIO M/2D COMPLETEon 0 08-27-2019 ECHOCARDIO M/2D COMPLETE Patient: JULIANN SILVA Exam Date: 08/27/2019 : 1960 Gender:F Ordering : DR ROSALBA TAYLOR M.D. Admission #: [id number] Family : Order #: [id number] CLICK HERE TO VIEW EXAM ECHOCARDIOGRAM REPORT [...] Area(A4C): 20.20 cm2 Left Atrium Systolic Volume(A2C): 51952 mm3 Left Atrium Systolic Volume(A4C): 79237 mm3 Mitral Valve MV E to A [...] Angulo M.D. on 08/31/2019 at 09:39 Normal [facility] LIPID PROFILEon 08-27-2019 CHOL-HDL RATIO NORM SEE BELOW Normal [facility] Comment on above: Result Comment: 3.3 - 4.4 LOW RISK 4.4 - 7.1 AVERAGE RISK 7.1 - 11.0 MODERATE RISK >11.0 HIGH RISK Performed By: #### L IPID, CMP #### [facility] [address] [place], [place] [address] Milla Annalisa Cholesterol [Mass/Vol] 258 mg/dL Critically high <=200 [facility] Comment on above: Performed By: #### L IPID, CMP #### [facility] [address] [place], [place] [address] Milla Annalisa Cholesterol in HDL [Mass/Vol] 77 mg/dL Normal [facility] Comment on above: Performed By: #### L IPID, CMP #### [facility] [address] [place], [place] [address] Milla Annalisa Cholesterol in HDL [Mass/Vol] > or = 60 mg/dl - LOW CARDIOVASCULAR RISK <40 mg/dl - HIGH CARDIOVASCULAR RISK Normal [facility] Comment on above: Performed By: #### L IPID, CMP #### [facility] [address] [place], [place] [address] Milla Annalisa Cholesterol in LDL [Mass/Vol] 158.4 mg/dL Normal [facility] Comment on above: Performed By: #### L IPID, CMP #### [facility] [address] [place], [place] [address] Milla Annalisa Cholesterol in LDL [Mass/Vol] SEE BELOW Normal [facility] Comment on above: Result Comment: <100 mg/dl OPTIMAL 100 - 129 mg/dl NEAR OR ABOVE OPTIMAL 130 - 159 mg/dl BORDERLINE HIGH 160 - 189 mg/dl HIGH >190 mg/dl VERY HIGH Performed By: #### L IPID, CMP #### [facility] [address] [place], [place] [address] Milla Annalisa Cholesterol.total/ Cholesterol in HDL [Mass ratio] 3.4 {ratio} Normal [facility] Comment on above: Performed By: #### L IPID, CMP #### [facility] [address] [place], [place] [address] Milla Fang Triglyceride [Mass/Vol] 113 mg/dL Normal <=150 [facility] Comment on above: Performed By: #### L IPID, CMP #### [facility] [address] [place] [address] Milla Fang VLDL CALC 22.6 mg/dL Normal [facility] Comment on above: Performed By: #### L IPID, CMP #### [facility] [address] [place], [place] [address] Milla Fang MG MAMM SCREEN CHANEL W CADon 0 08-27-2019 MG MAMM SCREEN CHANEL W CAD Patient: JULIANN SILVA Exam Date: 08/27/2019 : 1960 Gender:F Ordering : DR ROSALBA TAYLOR M.D. Admission #: [id number] Family : Order #: [id number] CLICK HERE TO VIEW EXAM RADIOLOGY REPORT [...] ovaria cancer at age 30. LOCATION: [facility] BREAST COMPOSITION: Heterogeneously dense, which may [...] MD on 08/27/2019 at 10:06 Normal [facility] NM STRESS/REST MULTIon 08-26 NM STRESS/REST MULTI Patient: JULIANN SILVA Exam Date: 08/27/2019 : 1960 Gender:F Ordering : DR ROSALBA TAYLOR M.D. Admission #: [id number] Family : DR DEANGELO TORRES M.D. Order #: [id number] CLICK HERE TO VIEW EXAM RADIOLOGY REPORT [...] Torres MD on 08/27/2019 at 15:35 Normal [facility] PROF 14(COMP METB)on 020 Albumin [Mass/Vol] 3.9 g/dL Normal 3.5-5.0 [facility] Comment on above: Performed By: #### L IPMECCA CMP #### [facility] [address] [place] [address] Milla Fang Albumin/Globulin [Mass ratio] 1.1 {ratio} Normal [facility] Comment on above: Performed By: #### L IPMECCA, CMP #### [facility] [address] [place] [address] Milla Annalisa ALP [Catalytic activity/Vol] 73 U/L Normal 38-126 [facility] Comment on above: Performed By: #### L IPID, CMP #### [facility] [address] [place] [address] Milla Annalisa ALT [Catalytic activity/Vol] 39 U/L Normal 9-52 [facility] Comment on above: Performed By: #### L IPID, CMP #### [facility] [address] [place] [address] Milla Annalisa Anion gap [Moles/Vol] 13.3 mmol/L Normal [facility] Comment on above: Performed By: #### L IPID, CMP #### [facility] [address] [place] [address] Imlla Annalisa AST [Catalytic activity/Vol] 19 U/L Normal 14-36 [facility] Comment on above: Performed By: #### L IPID, CMP #### [facility] [address] [place] [address] Milla Annalisa Bilirubin Ql (U) 0.9 mg/dL Normal 0.2-1.3 [facility] Comment on above: Performed By: #### L IPID, CMP #### [facility] [address] [place] [address] Milla Annalisa Calcium [Mass/Vol] 8.9 mg/dL Normal 8.4-10.2 [facility] Comment on above: Performed By: #### L IPID, CMP #### [facility] [address] [place] [address] Milla Annalisa Chloride [Moles/Vol] 102 mmol/L Normal 98-107 [facility] Comment on above: Performed By: #### L IPID, CMP #### [facility] [address] [place] [address] Milal Annalisa CO2 [Moles/Vol] 27.8 mmol/L Normal 22.0-30.0 [facility] Comment on above: Performed By: #### L IPID, CMP #### [facility] [address] [place] [address] Milla Annalisa Creatinine [Mass/Vol] 0.82 mg/dL Normal 0.52-1.04 [facility] Comment on above: Performed By: #### L IPID, CMP #### [facility] [address] [place] [address] Milla Annalisa EGFR-AF THAI >60 Normal >=60 [facility] Comment on above: Performed By: #### L IPID, CMP #### [facility] [address] [place] [address] Milla Annalisa EGFR-NON AF THAI >60 Normal >=60 [facility] Comment on above: Performed By: #### L IPID, CMP #### [facility] [address] [place] [address] Milla Annalisa Globulin (S) [Mass/Vol] 3.7 g/dL Normal [facility] Comment on above: Performed By: #### L IPID, CMP #### [facility] [address] [place] [address] Milla Annalisa Glucose [Mass/Vol] 111 mg/dL Critically high 74-106 T [facility] Comment on above: Performed By: #### L IPID, CMP #### [facility] [address] [place] [address] Milla Annalisa Potassium [Moles/Vol] 4.1 mmol/L Normal 3.4-5.0 [facility] Comment on above: Performed By: #### L IPID, CMP #### [facility] [address] [place] [address] Milla Annalisa Protein [Mass/Vol] 7.6 g/dL Normal 6.1-8.2 [facility] Comment on above: Performed By: #### L IPID, CMP #### [facility] [address] [place] [address] Milla Annalisa Sodium [Moles/Vol] 139 mmol/L Normal 137-145 [facility] Comment on above: Performed By: #### L IPID, CMP #### [facility] [address] [place] [address] Milla Annalisa Urea nitrogen [Mass/Vol] 11.0 mg/dL Normal 7.0-17.0 [facility] Comment on above: Performed By: #### L IPID, CMP #### [facility] [address] [place], [place] [address] Milla Calderonen Urea nitrogen/Creatinin e [Mass ratio] 13.4 mg/mg Normal [facility] Comment on above: Performed By: #### L IPID, CMP #### [facility] [address], [place] [address] Milla Fang Vital Signs Date Time Vital Sign Value Performing Clinician Facility 11-10-2024 13:01-0400 Body height 165.1 cm Rosalba Taylor MD Work Phone: [facility] 11-10-2024 13:01-0400 Body mass index (BMI) [Ratio] 31.6 kg/m2 Rosalba Taylor MD Work Phone: [facility] 11-10-2024 13:01-0400 Body weight 86.18 kg Rosalba Taylor MD Work Phone: [facility] 11-10-2024 13:01-0400 Diastolic blood pressure 72 mm[Hg] Rosalba Taylor MD Work Phone: [facility] 11-10-2024 13:01-0400 Heart rate 73 /min Rosalba Taylor MD Work Phone: [facility] 11-10-2024 13:01-0400 Systolic blood pressure 132 mm[Hg] Rosalba Tyalor MD Work Phone: [facility] 05-28-2024 08:49-0400 Body height 165.1 cm [facility] 05-28-2024 08:49-0400 Body mass index (BMI) [Ratio] 31.8 kg/m2 [facility] 05-28-2024 08:49-0400 Body weight 86.63 kg [facility] 05-28-2024 08:49-0400 Diastolic blood pressure 72 mm[Hg] [facility] 05-28-2024 08:49-0400 Heart rate 78 /min [facility] 05-28-2024 08:49-0400 Systolic blood pressure 108 mm[Hg] [facility] 11-05-2023 14:41-0400 Body height 165.1 cm [facility] 11-05-2023 14:41-0400 Body mass index (BMI) [Ratio] 31.6 kg/m2 [facility] 11-05-2023 14:41-0400 Body weight 86.18 kg [facility] 09-13-2022 10:45-0400 Body height 165.1 cm Shaun Kishore II Other [facility] Other 09-13-2022 10:45-0400 Body mass index (BMI) [Ratio] 31.78 kg/m2 Shaun Kishore II Other [facility] Other 09-13-2022 10:45-0400 Body weight 86.64 kg Shaun Kishore II Other [facility] Other 05-29-2022 16:30-0400 Body height 165.1 cm Rosalba Taylor Other [facility] Other 05-29-2022 16:30-0400 Body mass index (BMI) [Ratio] 32.45 kg/m2 Rosalba Taylor Other [facility] Other 05-29-2022 16:30-0400 Body weight 88.45 kg Rosalba Taylor Other [facility] Other 05-29-2022 16:30-0400 Diastolic blood pressure 78 mm[Hg] Rosalba Taylor Other [facility] Other 05-29-2022 16:30-0400 SaO2% (BldA) [Mass fraction] 97 % Rosalba Taylor Other [facility] Other 05-29-2022 16:30-0400 Systolic blood pressure 136 mm[Hg] Rosalba Taylor Other [facility] Other Encounters Encounter Date Encounter Type Care Provider Facility Start: 11-10-2024 End: 11-10-2024 ambulatory Rosalba Taylor MD Work Phone: [facility] Work Phone: Start: 11-10-2024 End: 11-10-2024 Patient encounter procedure Rosalba Taylor MD -[facility] Work Phone: Start: 05-28-2024 End: 05-28-2024 ambulatory [facility] Work Phone: Start: 05-28-2024 End: 05-28-2024 Patient encounter procedure [facility] Work Phone: Start: 11-05-2023 End: 11-05-2023 ambulatory [facility] Work Phone: Start: 11-05-2023 End: 11-05-2023 Patient encounter procedure [facility] Physician [facility] Work Phone: Start: 08-29-2023 Non-patient / Non-visit [facility] Physician [facility] Work Phone: Start: 02-22-2023 End: 02-22-2023 ambulatory Rosalba Taylor Other [facility] Other Start: 02-22-2023 Telephone encounter Rosalba Taylor [facility] Start: 11-21-2022 End: 11-21-2022 ambulatory Rosalba Taylor Other [facility] Other Start: 11-21-2022 Telephone encounter Rosalba Taylor [facility] Start: 10-01-2022 End: 10-01-2022 ambulatory Rosalba Taylor Other [facility] Other Start: 10-01-2022 Telephone encounter Rosalba Taylor [facility] [employer] Start: 09-13-2022 End: 09-13-2022 ambulatory Shaun Granville II Other [facility] Other Start: 09-13-2022 Office outpatient vi sit 25 minutes Shaun Felderle II [facility] Start: 08-09-2022 End: 08-09-2022 ambulatory Rosalba Taylor Facility:[facility] Start: 08-09-2022 End: 08-09-2022 ambulatory MD Rosalba Taylor Work Phone: [facility] Work Phone: Start: 08-09-2022 End: 08-09-2022 Discharged Recurring MD Rosalba Taylor Work Phone: [facility] [place] Start: 07-27-2022 Office outpatient ne w 45 minutes Shaun Felderle II [facility] Start: 07-27-2022 End: 07-27-2022 ambulatory Shaun M Granville II [facility] [email or web address] Other Start: 07-27-2022 End: 07-27-2022 Patient encounter procedure MD Rosalba Taylor Work Phone: [facility] Start: 05-29-2022 End: 05-29-2022 ambulatory Rosalba Taylor Other [facility] Other Start: 05-29-2022 Office outpatient vi sit 15 minutes Rosalba Taylor [facility] Start: 07-14-2021 Adult health examination Shaun Kishore II Other [facility] Other Start: 11-18-2019 End: 11-18-2019 Patient encounter procedure MARK FUNES Facility:[facility] Start: 11-13-2019 End: 11-14-2019 Patient encounter procedure MARK FUNES Facility:[facility] Start: 09-12-2019 Encounter for genera l adult medical examination without abnormal findings ROSALBA TAYLOR [facility] Start: 08-27-2019 End: 08-28-2019 Patient encounter procedure ROSALBA TAYLOR Facility:[facility] Encounter for genera l adult medical examination without abnormal findings ROSALBA TAYLOR [facility] Procedures Date Procedure Procedure Detail Performing Clinician Start: 07-27-2022 Pelvis X-ray MD Rosalba Taylor Work Phone: Start: 07-27-2022 X-ray of both knees MD Rosalba Taylor Work Phone: Start: 09-03-2017 Screening for malign ant neoplasm of colon Shaun Novak II Other Start: 01-12-2014 Screening mammography R diana Granville II Other Screening for malign ant neoplasm of breast Shaun Hardyisle II Other Plan of Treatment Date Care Activity Detail Author Comprehensive metabo lic 1999 panel - Serum or Plasma [facility] enter DXA Skeletal system. axial Views for bone density [facility] enter MG Breast - bilateral Screening [facility] MG Breast - bilateral Screening [facility] XR Chest 2 Views [facility] Immunizations Immunization Date Immunization Notes Care Provider Fa cility 11-05-2023 Pneumococcal Conjuga te Vaccine, 20 valent [facility] 02-24-2019 influenza virus vaccine, split virus (incl. purified surface antigen) [place] Kishore NUNEZ Other [facility] Other 02-24-2019 influenza virus vaccine, unspecified formulation [facility] Payers Date Payer Category Payer Self-pay 1959 Unknown [id number] 1960 Unknown [id number] 1960 Unknown [id number] 1960 Unknown [id number] Medicare [facility] Health Plans [facility] S [id number] Unknown [id number] Unknown [id number] Unknown MMO MCR Adv PFFS [id number] Social History Date Type Detail Facility Unknown if ever smoked [facility] [email or web address] Other Sex Assigned At Sex Assigned At Bir th [facility] [email or web address] Other Start: 1960 Sex Assigned At Female F [facility] Tobacco smoking status NHIS Unknown if ever smoked [facility] Work Phone: Start: 05-28-2024 Sex Female (finding) [facility] Clinical Notes 05-29-2022 to 11-21-2022 Note Date & Type Note Facility 11-21-2022 Evaluation note Encounter Date Diagnosis Assessment Notes Nov, Primary osteoarthritis of left knee (ICD-10 - M17.12) [facility] [email or web address] Other 07-27-2023 Evaluation note* Encounter Date Diagnosis Assessment Notes Treatment Notes Treatment Clinical Notes Aug, Primary osteoarthritis of left knee (ICD-10 - M17.12) Aug, Primary osteoarthritis of right knee (ICD-10 - M17.11) Aug, Acute pain of left knee (ICD-10 - M25.562) Aug, Pain in right leg (ICD-10 - M79.604) Aug, Pain in left leg (ICD-10 - M79.605) Aug, Other We discussed he r symptoms again today at this point I do not feel that this is an orthopedic problem. While she does have arthritis on her x-rays of both knees its mild arthritis and it does not appear that her symptoms are even consistent with knee arthritis at this time. Furthermore, she did not get any benefit whatsoever from the anti-inflammatorie s. It almost sounds like she is describing over excitement of nerves in her bilateral lower extremities. At this point I do not feel I have something to offer her. We did discuss possible evaluations by neurology or even rheumatology to determine if there is something going on from their standpoint. [facility] Other 06-09-2023 Evaluation note* Encounter Date Diagnosis Assessment Notes Treatment Notes Treatment Clinical Notes Jul, Acute pain of left knee (ICD-10 - M25.562) Jul, Primary osteoarthritis of left knee (ICD-10 - M17.12) Jul, Primary osteoarthritis of right knee (ICD-10 - M17.11) Jul, Other 1. We had a glenn g discussion with the patient today concerning their [...] physical therapy, and the consistent use of anti-inflammatories. All 3 of these options, including their [...] not getting relief with her more consistent anti-inflammatory then she will call and we can consider bilateral knee steroid injections 6. Follow up as needed [facility] Other 04-11-2023 Evaluation note* Encounter Date Diagnosis Assessment Notes Treatment Notes Treatment Clinical Notes May, Left medial knee pain (ICD-10 - M25.562) Order for physical therapy printed and given to patient. Discussed potential x-ray Ortho referral and even MRI. Without history of injury, doubt utility of any of these steps initially prior to doing some physical therapy. Patient was open to do so. Also suggested [id number] Voltaren gel. [facility] Other Evaluation noteNo assessment information available [facility] Work Phone: Evaluation [facility]No [facility] [email or web address] Other Evaluation note* Diagnosis Onset Date Resolution Status Essential (primary) hypertension acute Menopause acute Screening mammogram for breast cancer acute Encounter for initial annual wellness visit in Medicare patient noneactive [facility] Work Phone: Evaluation note* Diagnosis Onset Date Resolution Status Admit Date Chronic cough acute May 28, 2024 8:42am [facility] Work Phone: Evaluation note* Diagnosis Onset Date Resolution Status Admit Date Colon cancer screening acute Se ptember 2024 12:59pm Knee osteoarthritis acute Septe mber 2024 12:59pm Medicare annual wellness vis it, subsequent acute November 10, 2024 12:59pm Screening mammogram for selvin st cancer acute November 10, 2024 12:59pm [facility] Work Phone: History general Narrative - Reported* Type Description Date Medical History Essential (primary) hypertension Medical History Gastric reflux syndrome Medical History Transfusion history Surgical History D&C / HYSTEROSCOPY 2001 Hospitalization History SEE SURGICAL HX [facility] [email or web address] Other Reason for referral (narrative)No reason for referral [facility] Work [facility]: Summary Purpose Family History Relationship Condition Age [...] Chronic cough May 28, 2024 8:4 2am Chief Complaint Admit Date Wellness November 10, 2024 12:59pm Reason for Visit Admit Date Colon cancer screening November 10, 2 025 12:59pm Knee osteoarthritis November 10, 2024 12:59pm Medicare annual wellness visit, subseque nt November 10, 2024 12:59pm Screening mammogram for breast cancer Se ptember 2024 12:59pm Additional Source Comments INFORMATION SOURCE (unrecogn ized section and content) DATE CREATED AUTHOR 11/20/2019 [facility] DATE CREATED AUTHOR AUTHOR'S ORGANIZ ATION 12/02/2019 [facility] DATE CREATED AUTHOR AUTHOR'S ORGANIZ ATION 08/10/2022 [facility] REASON FOR VISIT (unrecogniz ed section and content) Left LegCONSULT DR Elsie Vivas T KNEE PAIN NXOP SP BILAT KNEE PAINoffice notes need [facility] Information Care Teams (unrecognized sec tion and content) Team Status: Active Member Role Status Dates Rosalba Taylor MD Primary Care Provider Active Team Status: Inactive Member Role Status Dates Rosalba Taylor MD Primary Care Provide r, Attending Provider Active Start: May 28, 2024 End: May 28, 2024 Team Status: Active Member Role Status Dates Rosalba Taylor MD Primary Care Provider Active Start: August 29, 2023 Rose Mary Hernandez LPN Attending Provider Active St art: August 29, 2023 Team Status: Inactive Member Role Status Dates Rosalba Taylor MD Primary Care Provide r, Attending Provider Active Start: November 05, 2023 End: November 05, 2023 Team Status: Inactive Member Role Status Dates Rosalba Taylor MD Primary Care Provider, Attending Kamila carter Active Team Status: Inactive Member Role Status Dates Rosalba Taylor MD Primary Care Provider Active Shaun Nvoak II, MD Attending Provider Active Team Status: Inactive Member Role Status Dates Rosalba Taylor MD Primary Care Provider Active Start: November 10, 2024 End: November 10, 2024 Rosalba Taylor MD Attending Provider Active St art: November 10, 2024 End: November 10, 2024 Goals (unrecognized section and content) Goals [...] BE BASED ON THE PRIMARY CLINICAL RECORDS. [employer] provides no warranty or guarantee of the accuracy or completeness of information in this document.
== END 2024-12-03 14:23 | disposition home or self-care (01) ==
LOC: MAMMO 14:23
PROVIDERS: PCP Family Medicine; Visit Provider Family Medicine
DX: Z12.31 Encounter for screening mammogram for malignant neoplasm of breast (principal); Z80.41 Family history of malignant neoplasm of ovary
CPT/HCPCS: 77063; 77067